=== PATIENT | female | born 1980 | race African-American/Black ===

== ENCOUNTER 2016-07-05 08:39 | Outpatient (CLI) | payer MEDICAID ==
[2016-07-05] MEDS ORDERED: PROMETHAZINE HCL INJ 25 MG/1 ML VIAL ONE (09:11)
[2016-07-05] MEDS ORDERED: RINGERS SOLUTION,LACTATED 1,000 ML IV PRN (09:30)
[2016-07-05] MEDS ORDERED: PROMETHAZINE HCL INJ 25 MG/1 ML VIAL IV ONE (09:30)
[2016-07-05 09:31] LABS: APPEARANCE,URINE SLIGHTLY-CLOUDY; BILIRUBIN,URINE NEGATIVE (NEGATIVE); GLUCOSE, URINE NEGATIVE (NEGATIVE); KETONES,URINE TRACE mg/dL (NEGATIVE); LEUKOCYTE ESTERASE,URINE MODERATE (NEGATIVE); NITRITE,URINE NEGATIVE (NEGATIVE); PROTEIN,URINE 30 mg/dL (NEGATIVE); URINE SPECIFIC GRAVITY 1.025
[2016-07-05 09:59] LABS: URINE BARBITURATES SCREEN NEGATIVE; URINE METHADONE SCREEN NEGATIVE; URINE PHENCYCLIDINE SCREEN NEGATIVE
--- NOTE | 2016-07-05 10:20 | Non Stress Test Report ---
Non Stress Test Datetime Report Generated by CPN: 07/05/2016 10:20 DEMOGRAPHIC EGA NST: 32.6 INDICATION Indication for Study: Other Indication for Study (NST) Other: Labor Check MONITORING Monitor Explained: Monitor Explained; Test Explained; Patient Verbalized Understanding Time on Monitor: 07/05/2016 09:04 Time off Monitor: 07/05/2016 09:56 NST Duration: 52 NST INTERVENTIONS NST Interventions: PO Hydration; Reposition Patient Physician Notified NST: Aysha Escalante CNM BABY A: [id number] BABY A Movement : Present Contraction Frequency : None FHR Baseline : 135 Accelerations : 15X15 Decelerations : None Variability : Moderate 6-25bpm NST Review: Meets Criteria for Reactive NST NST Review and Verified By : Jennifer Maher RNC NST Results: Reactive NST REPORT Report Trigger: Send Report
--- NOTE | 2016-07-10 16:44 | L&D Current Admission ---
Current Admit Datetime Report Generated by CPN: 07/10/2016 16:44 ADMISSION INFORMATION Chief Complaint: Contractions (07/05/2016 09:10:CHIQUIS Chacon
--- NOTE | 2016-07-10 16:44 | Antepartum Discharge Summary ---
Antepartum DC Datetime Report Generated by CPN: 07/10/2016 16:44 Diet: Regular (07/05/2016 10:18:Genoveva Handy RN) Activity: Normal Activity (07/05/2016 10:18:Genoveva Handy RN) Instructions Given To: Patient (07/05/2016 10:18:Genoveva Handy RN) Instructions Understood: Patient Verbalized Understanding (07/05/2016 10:18:Genoveva Handy RN) Referrals: None (07/05/2016 10:18:Genoveva Handy RN) Educational Materials- Other: Kick Counts, Dehydration (07/05/2016 10:18:Genoveva Handy RN) Discharged AMA: No (07/05/2016 10:18:Genoveva Handy RN) Discharge Date/Time: 07/05/2016 10:14 (07/05/2016 10:18:Genoveva Handy RN) Discharged To: Home (07/05/2016 10:18:Genoveva Handy RN) Discharge Provider Name: Aysha Escalante CNM (07/05/2016 10:18:Genoveva Handy RN) Accompanied By: Kelly Bajwa CNA (07/05/2016 10:18:Genoveva Handy RN) Discharge Method: Wheelchair (07/05/2016 10:18:Genoveva Handy RN) Condition: Stable (07/05/2016 10:18:Genoveva Handy RN) Follow Up With: [facility] (07/05/2016 10:18:Genoveva Handy RN) Follow Up On: As Scheduled (07/05/2016 10:18:Genoveva Handy RN) Follow Up Phone Number: [facility] - (07/05/2016 10:18:Genoveva Handy RN)
--- NOTE | 2016-07-10 16:45 | L&D Flow Sheet ---
LD Flowsheet Datetime Report Generated by CPN: 07/10/2016 16:45 Datetime: 07/05/2016 10:14 Communication Communication Comments: Pt off unit in stable condition in wheelchair accompanied by A. Bajwa CORRECTIONAL TREATMENT SPECIALIST. Pt states her dad is picking her up in ED (Genoveva Handy, RN) Datetime: 07/05/2016 10:07 Communication Communication Comments: D/C instructions given. IV discontined. Pt has no questions at this time (Genoveva Handy, RN) Datetime: 07/05/2016 09:56 Uterine Activity Monitor Mode: External (Genoveva Handy, RN) Frequency (min): None (Genoveva Handy, RN) Resting Tone (Palpate): Relaxed (Genoveva Handy, RN) Assessment A Monitor Mode: External US (Genoveva Handy, RN) FHR Baseline Rate : 145 (Genoveva Handy, RN) Variability: Moderate 6-25 bpm (Genoveva Handy, RN) Accelerations: 15X15 (Genoveva Handy, RN) Decelerations: None (Genoveva Handy, RN) Communication Communication Comments: D/C order received per Aysha Escalante CNM. PT trying to call someone to come get her (Genoveva Handy, RN) Datetime: 07/05/2016 09:54 Vaginal Exam Exam by: K. Escalante CNM (Genoveva Handy, RN) Vaginal Exam Comments: closed/thick/high (Genoveva Handy, RN) Communication Communication Comments: K. Escalante CNM at bedside (Genoveva Handy, RN) Datetime: 07/05/2016 09:36 Vital Signs NBP Sys/Nora/Mean (mmHg): 99 (QS system process) : 60 (QS system process) : 74 (QS system process) Pulse: 76 (QS system process) Datetime: 07/05/2016 09:30 Uterine Activity Monitor Mode: External (Genoveva Handy, RN) Frequency (min): None (Genoveva Handy, RN) Resting Tone (Palpate): Relaxed (Genoveva Handy, RN) Assessment A Monitor Mode: External US (Genoveva Ole, RN) FHR Baseline Rate : 135 (Genoveva Ole, RN) Variability: Moderate 6-25 bpm (Genoveva Ole, RN) Accelerations: 15X15 (Genoveva Ole, RN) Decelerations: None (Genoveva Ole, RN) Datetime: 07/05/2016 09:21 Medications Medication Comments: 25 mg Phenergan added to 1000ml bag of LR (Genoveva Handy, RN) Patient Care IV/Blood Work: IV Started; IV Bolus Started (Genoveva Handy, RN) Datetime: 07/05/2016 09:15 Communication Communication Comments: Report given to K. Escalante CNM. Orders to start IV and give 1L bolus of LR and add 25mg Phenergan to LR bag. (Genoveva Handy, RN) Datetime: 07/05/2016 09:10 Frequency (min): pt states they were 5-6 minutes apart and then spaced out once she sat on birthing ball at home (Genoveva Handy, HUI) Pain Pain Scale: 0 (Genoveva Handy RN) Pain Presence: None/Denies (Genoveva Handy RN) Pain Type: N/A (Genoveva Handy RN) Pain Assessment Comments: Pt denies pain at this time. States in the middle of the night it was 4/5 and unbearable. (Genoveva Handy RN) Vaginal Bleeding: None (Genoveva Handy RN) Maternal Assessment Level of Consciousness: Fully Conscious (Genoveva Handy RN) DTR's/Clonus: DTRs 2+; No Clonus (Genoveva Handy RN) Headache: Denies (Genoveva Handy RN) Breath Sounds, Left: Clear and Equal (Genoveva Handy RN) Breath Sounds, Right: Clear and Equal (Genoveva Handy RN) Nausea/Vomiting: Present (Annotations: Pt states she had N/V throughout the night) (Genoveva Handy RN) RUQ Epigastric Pain: Denies (Genoveva Handy RN) Teaching Instructional Method: Verbal; Patient Instructed; Verbalized Understanding (Genoveva Handy RN) Plan of Care: Plan of Care Discussed (Genoveva Handy RN) Unit Routine: [place] to Room; Call Chávez; Bed; Monitoring; Bathroom Privileges (Genoveva Handy RN) Datetime: 07/05/2016 09:06 Vital Signs NBP Sys/Nora/Mean (mmHg): 104 (QS system process) : 62 (QS system process) : 76 (QS system process) Pulse: 88 (QS system process) Datetime: 07/05/2016 09:04 Monitor Interventions for UA: [place] Adjusted (Genoveva Handy, RN) Patient Position/Activity: Right Lateral (Genoveva Handy, RN) Datetime: 07/05/2016 09:02 I/O Interventions: Clear Liquids Given (Genoveva Handy, RN) Datetime: 07/05/2016 09:01 Patient Position/Activity: Left Lateral (Genoveva Handy RN)
--- NOTE | 2016-07-10 16:45 | L&D General Admission ---
General Admit Datetime Report Generated by CPN: 07/10/2016 16:44 INFORMATION LMP: 11/16/2015 00:00 (05/08/2016 08:41:Genoveva Handy RN) : 3 (05/08/2016 08:41:Genoveva Handy RN) Para: 1 (07/05/2016 10:18:Genoveva Handy RN) [place] (05/08/2016 08:41:Genoveva Handy RN) Baby, Number in Womb: 1 (07/05/2016 10:18:Genoveva Handy RN) CARE Primary Acid Loader: [facility] (05/08/2016 08:41:Genoveva Handy RN) Acid Loader Other: [facility] (05/08/2016 08:41:Genoveva Handy RN) Prepregnancy Weight (lb): 145 (05/08/2016 08:41:Genoveva Handy RN) Prepregnancy Weight (kg): 65.9 (05/08/2016 08:41:QS system process) Height (in): 62 (07/05/2016 08:55:QS system process) Height (in): 63 (05/08/2016 10:19:QS system process) ALLERGIES Medication Allergies: No Known Allergies (07/05/2016) (07/05/2016 08:54:QS system process) Tubal Ligation: Yes (05/08/2016 08:41:Genoveva Handy RN) Tubal Authorization Signed: No (05/08/2016 08:41:Genoveva Handy RN) LABS RPR/VDRL: Nonreactive (05/08/2016 08:41:Genoveva Handy, RN) OB/PREVIOUS HISTORY LMP: 11/16/2015 00:00 (05/08/2016 08:41:Genoveva Handy RN) History of Gestational Diabetes: Yes (05/08/2016 08:41:Genoveva Handy RN) MEDICAL HISTORY Med Hx Diabetes: Yes (05/08/2016 08:41:Genoveva Handy RN) Diabetes Type: Gestational Diabetes (05/08/2016 08:41:Genoveva Handy RN) Med Hx Hospitalization/Surgery: Yes (05/08/2016 08:41:Genoveva Handy RN) Details of Med/Surg Hx: GDM - diet controlled, gastic bypass, IVF, laproscoptomy, ovarian drilling (05/08/2016 08:41:Genoveva Handy RN) GENETIC HISTORY Gen Hx Age >=35 at [facility]KY: Yes (05/08/2016 08:41:Genoveva Handy RN)
--- NOTE | 2016-07-10 16:45 | Non Stress Test Report ---
Non Stress Test Datetime Report Generated by CPN: 07/10/2016 16:45 DEMOGRAPHIC EGA NST: 32.6 INDICATION Indication for Study: Other Indication for Study (NST) Other: Labor Check MONITORING Monitor Explained: Monitor Explained; Test Explained; Patient Verbalized Understanding Time on Monitor: 07/05/2016 09:04 Time off Monitor: 07/05/2016 09:56 NST Duration: 52 NST INTERVENTIONS NST Interventions: PO Hydration; Reposition Patient Physician Notified NST: Aysha Escalante CNM BABY A: [id number] BABY A Movement : Present Contraction Frequency : None FHR Baseline : 135 Accelerations : 15X15 Decelerations : None Variability : Moderate 6-25bpm NST Review: Meets Criteria for Reactive NST NST Review and Verified By : Jennifer Maher RNC NST Results: Reactive NST REPORT Report Trigger: Send Report
--- NOTE | 2016-07-10 16:46 | L&D Discharge Summary ---
OB Discharge Summary Datetime Report Generated by CPN: 07/10/2016 16:45 DISCHARGE DIAGNOSIS Diagnosis/Symptoms: False Labor; Dehydration; Nausea/Vomiting Gestation: 32.6 Number of Babies in Womb: 1 Parity: 1 DIET/ACTIVITY/RESTRICTIONS Diet: Regular Activity: Normal Activity TEACHING/INSTRUCTIONS/REFERRALS Instructions Given To: Patient Instructions Understood: Patient Verbalized Understanding Referrals: None Educational Materials- Other: Kick Counts, Dehydration DISCHARGE INFORMATION Discharged AMA: No Discharge Date/Time: 07/05/2016 10:14 Discharged To: Home Discharge Provider Name: Aysha Escalante CNM Accompanied By: A. Bajwa ANIMAL HOSPITAL CLERK Discharge Method: Wheelchair Condition: Stable FOLLOW UP INFORMATION Follow Up With: [facility] Follow Up On: As Scheduled Follow Up Phone Number: [facility] -
== END 2016-07-05 10:14 | disposition home or self-care (01) ==
LOC: LC 08:39
PROVIDERS: ATTEND Obstetrics & Gynecology
PROC: 4A1HXCZ Monitoring of Products of Conception, Cardiac Rate, External Approach (ICD-10-PCS; principal; 2016-07-05)
DX: Z34.93 Encounter for supervision of normal pregnancy, unspecified, third trimester (principal); Z3A.32 32 weeks gestation of pregnancy
CPT/HCPCS: 81001; 80307; 59025; J2550

== ENCOUNTER 2016-08-02 03:53 | Outpatient (CLI) | payer MEDICAID ==
[2016-08-02 04:17] LABS: APPEARANCE,URINE CLOUDY; BILIRUBIN,URINE NEGATIVE (NEGATIVE); GLUCOSE, URINE NEGATIVE (NEGATIVE); KETONES,URINE 20 mg/dL (NEGATIVE); LEUKOCYTE ESTERASE,URINE LARGE (NEGATIVE); NITRITE,URINE NEGATIVE (NEGATIVE); PROTEIN,URINE 30 mg/dL (NEGATIVE); URINE SPECIFIC GRAVITY 1.016
[2016-08-02 04:34] LABS: URINE BARBITURATES SCREEN NEGATIVE; URINE METHADONE SCREEN NEGATIVE; URINE OPIATES LOW NEGATIVE; URINE PHENCYCLIDINE SCREEN NEGATIVE
--- NOTE | 2016-08-06 21:19 | Non Stress Test Report ---
Non Stress Test Datetime Report Generated by CPN: 08/06/2016 21:19 DEMOGRAPHIC Test Number: 2 EGA NST: 36.6 INDICATION Indication for Study: Other Indication for Study (NST) Other: labor check MONITORING Monitor Explained: Monitor Explained; Test Explained; Patient Verbalized Understanding Time on Monitor: 08/02/2016 04:12 Time off Monitor: 08/02/2016 04:41 NST Duration: 29 NST INTERVENTIONS NST Interventions: PO Hydration; Other NST Interventions Other: popcicle Physician Notified NST: Dr Neilsen BABY A: [id number] BABY A Movement : Present Contraction Frequency : none FHR Baseline : 130 Accelerations : 15X15 Decelerations : None Variability : Moderate 6-25bpm NST Review: Meets Criteria for Reactive NST NST Review and Verified By : Carlos Whitmore RN NSAttila Results: Reactive NST REPORT Report Trigger: Send Report
== END 2016-08-02 05:02 | disposition home or self-care (01) ==
LOC: LC 03:53
PROVIDERS: ATTEND Specialist
PROC: 4A1HXCZ Monitoring of Products of Conception, Cardiac Rate, External Approach (ICD-10-PCS; principal; 2016-08-02)
DX: O09.523 Supervision of elderly multigravida, third trimester (principal); Z3A.36 36 weeks gestation of pregnancy
CPT/HCPCS: 59025; 80307; 81005

== ENCOUNTER 2016-08-02 05:17 | Emergency (ER) | payer MEDICAID ==
[2016-08-02 05:24] VITALS: BP 116/68
== END 2016-08-02 06:25 | disposition left against medical advice (07) ==
LOC: ER 05:17
DX: Z53.21 Procedure and treatment not carried out due to patient leaving prior to being seen by health care provider (principal)

== ENCOUNTER → 2016-08-02 | Outpatient (CLI) | payer MEDICAID | LOC: OD 09:29 | PROVIDERS: ATTEND Obstetrics & Gynecology | DX: J06.9 Acute upper respiratory infection, unspecified (principal); R05 Cough | CPT/HCPCS: 87804 ==

== ENCOUNTER 2016-08-06 21:21 | Outpatient (CLI) | payer MEDICAID ==
--- NOTE | 2016-08-06 22:00 | L&D Flow Sheet ---
LD Flowsheet Datetime Report Generated by CPN: 08/06/2016 22:00 Datetime: 08/06/2016 21:56 Stage of : OB Triage (Crystal [place], RN) Dilatation (cm): 1 (Crystal [place], RN) Effacement: 0-30_ effaced (Crystal [place], RN) Station: minus 3 (Crystal [place], RN) Datetime: 08/06/2016 21:43 NBP Sys/Nora/Mean (mmHg): 126 (QS system process) : 79 (QS system process) : 97 (QS system process) Pulse: 75 (QS system process) Monitor Mode: Palpation (Lucrecia [place], RN) Frequency (min): 1 (Lucrecia Fallergrass, RN) Quality: Mild (Crystal Iram, RN) Duration (sec): 60 (Crystal [place], RN) Duration Criteria: Less than Two 120 Second Contractions (Lucrecia Fallergrass, RN) Resting Tone (Palpate): Relaxed (Lucrecia Iram, RN) Monitor Mode: External US (Lucrecia [place], RN) FHR Baseline Rate : 125 (Lucrecia Iram, RN) Variability: Moderate 6-25 bpm (Crystal Iram, RN) Accelerations: 15X15 (Crystal Iram, RN) Decelerations: None (Lucrecia [place], RN) Patient Position/Activity: Left Tilt; High Fowlers (Lucrecia [place], RN) I/O Interventions: Clear Liquids Given (Lucrecia Walden, RN) Datetime: 08/06/2016 21:32 Monitor Mode: External US (Lucrecia Walden, RN) Pain Scale: 4 (Lucrecia Walden, RN) Pain Presence: Intermittent (Lucrecia Walden, RN) Pain Type: Pressure; Ache (Lucrecia Walden, RN) Pain Location: Abdomen; Back; Perineum (Lucrecia Walden, RN) Pain Goal: 1 (Lucrecia Walden RN) Pain Relief Measures: Comfort Measures (Lucrecia Walden RN) Pain Coping: Talking Through Contractions (Lucrecia Walden RN) Vaginal Bleeding: None (Lucrecia Walden RN) Level of Consciousness: Fully Conscious (Lucrecia Walden RN) DTR's/Clonus: DTRs 1+; No Clonus (Lucrecia Walden RN) Headache: Temporal (Lucrecia Walden RN) Breath Sounds, Left: Clear and Equal (Lucrecia Walden RN) Breath Sounds, Right: Clear and Equal (Lucrecia Walden RN) Nausea/Vomiting: Denies (Lucrecia Walden RN) RUQ Epigastric Pain: Denies (Lucrecia Walden RN)
[2016-08-06 22:30] LABS: APPEARANCE,URINE CLEAR; BILIRUBIN,URINE MODERATE (NEGATIVE); GLUCOSE, URINE NEGATIVE (NEGATIVE); KETONES,URINE 100 mg/dL (NEGATIVE)
[2016-08-06 22:31] LABS: LEUKOCYTE ESTERASE,URINE SMALL (NEGATIVE); NITRITE,URINE NEGATIVE (NEGATIVE); PROTEIN,URINE 100 mg/dL (NEGATIVE); URINE SPECIFIC GRAVITY 1.033
[2016-08-06] MEDS ORDERED: HYDROXYZINE PAMOATE 50 MG CAPSULE PO ONE (22:34)
[2016-08-06] MEDS ORDERED: HYDROXYZINE PAMOATE 50 MG CAPSULE ONE (22:37)
[2016-08-06 22:38] LABS: URINE BARBITURATES SCREEN NEGATIVE; URINE METHADONE SCREEN NEGATIVE; URINE OPIATES LOW NEGATIVE; URINE PHENCYCLIDINE SCREEN NEGATIVE
--- NOTE | 2016-08-08 10:36 | Non Stress Test Report ---
Non Stress Test Datetime Report Generated by CPN: 08/08/2016 10:36 DEMOGRAPHIC Test Number: 1 EGA NST: 37.3 INDICATION Indication for Study: Ordered by Provider VITAL SIGNS Temperature - NST: 98.0 Pulse - NST: 75 RESP - NST: 16 NBPSYS NST: 126 NBPDIA NST: 79 MONITORING Monitor Explained: Monitor Explained; Test Explained; Patient Verbalized Understanding Time on Monitor: 08/06/2016 21:35 Time off Monitor: 08/06/2016 22:30 NST Duration: 55 NST INTERVENTIONS NST Interventions: PO Hydration Physician Notified NST: Arpit BABY A Movement : Present Contraction Frequency : Irritability FHR Baseline : 125 Accelerations : 15X15 Decelerations : None Variability : Moderate 6-25bpm NST Review: Meets Criteria for Reactive NST NST Review and Verified By : Carlos Whitmore RN NST Results: Reactive NST REPORT Report Trigger: Send Report
== END 2016-08-06 23:02 | disposition home or self-care (01) ==
LOC: LC 21:21
PROVIDERS: ATTEND Obstetrics & Gynecology
PROC: 4A1HXCZ Monitoring of Products of Conception, Cardiac Rate, External Approach (ICD-10-PCS; principal; 2016-08-06)
DX: O47.1 False labor at or after 37 completed weeks of gestation (principal); O09.523 Supervision of elderly multigravida, third trimester; Z3A.37 37 weeks gestation of pregnancy
CPT/HCPCS: 59025; 81005; 80307; J3490

== ENCOUNTER 2016-08-08 10:39 | Outpatient (CLI) | payer MEDICAID ==
[2016-08-08 11:20] LABS: APPEARANCE,URINE SLIGHTLY-CLOUDY; BILIRUBIN,URINE NEGATIVE (NEGATIVE); GLUCOSE, URINE NEGATIVE (NEGATIVE); KETONES,URINE NEGATIVE (NEGATIVE); LEUKOCYTE ESTERASE,URINE MODERATE (NEGATIVE); NITRITE,URINE NEGATIVE (NEGATIVE); PROTEIN,URINE NEGATIVE (NEGATIVE); URINE SPECIFIC GRAVITY 1.021
[2016-08-08 11:27] LABS: AMNISURE (ROM) NEGATIVE (NEGATIVE)
--- NOTE | 2016-08-08 11:31 | Non Stress Test Report ---
Non Stress Test Datetime Report Generated by CPN: 08/08/2016 11:31 DEMOGRAPHIC EGA NST: 37.5 INDICATION Indication for Study: Ordered by Provider MONITORING Monitor Explained: Monitor Explained; Test Explained; Patient Verbalized Understanding Time on Monitor: 08/08/2016 10:59 Time off Monitor: 08/08/2016 11:29 NST Duration: 30 NST INTERVENTIONS NST Interventions: PO Hydration; Reposition Patient Physician Notified NST: P. Darby, CNM BABY A Movement : Present Contraction Frequency : 0 FHR Baseline : 130 Accelerations : 15X15 Variability : Moderate 6-25bpm NST Review: Meets Criteria for Reactive NST NST Review and Verified By : Marissa Peres RNC NST Results: Reactive NST REPORT Report Trigger: Send Report
[2016-08-08 11:52] LABS: URINE BARBITURATES SCREEN NEGATIVE; URINE METHADONE SCREEN NEGATIVE; URINE OPIATES LOW NEGATIVE; URINE PHENCYCLIDINE SCREEN NEGATIVE
== END 2016-08-08 10:55 | disposition home or self-care (01) ==
LOC: LC 10:39
PROVIDERS: ATTEND Obstetrics & Gynecology
DX: Z34.93 Encounter for supervision of normal pregnancy, unspecified, third trimester (principal); Z3A.37 37 weeks gestation of pregnancy
CPT/HCPCS: 59025; 80307; 81005; 84112

== ENCOUNTER 2016-08-12 20:46 | Outpatient (CLI) | payer MEDICAID ==
[2016-08-12 21:27] LABS: APPEARANCE,URINE CLOUDY; BILIRUBIN,URINE NEGATIVE (NEGATIVE); GLUCOSE, URINE NEGATIVE (NEGATIVE); KETONES,URINE NEGATIVE (NEGATIVE); LEUKOCYTE ESTERASE,URINE MODERATE (NEGATIVE); NITRITE,URINE NEGATIVE (NEGATIVE); PROTEIN,URINE NEGATIVE (NEGATIVE)
[2016-08-12 21:31] LABS: AMNISURE (ROM) NEGATIVE (NEGATIVE)
[2016-08-12 21:42] LABS: URINE BARBITURATES SCREEN NEGATIVE; URINE METHADONE SCREEN NEGATIVE; URINE OPIATES LOW NEGATIVE; URINE PHENCYCLIDINE SCREEN NEGATIVE
--- NOTE | 2016-08-12 22:01 | L&D Flow Sheet ---
LD Flowsheet Datetime Report Generated by CPN: 08/12/2016 22:00 Datetime: 08/12/2016 21:48 NBP Sys/Nora/Mean (mmHg): 108 (QS system process) : 61 (QS system process) : 78 (QS system process) Pulse: 71 (QS system process) LaborFlag: OB Triage (QS system process) Datetime: 08/12/2016 21:45 Monitor Mode: External; Palpation (Audelia Hill RN) Frequency (min): irregular (Audelia Chalman, RN) Quality: Mild (Audelia Hill RN) Duration (sec): 50-70 (Audelia Hill RN) Pattern: Normal: <= 5 Contractions in 10 Minutes (Audelia Hill RN) Resting Tone (Palpate): Relaxed (Audelia Hill RN) Monitor Mode: External US (Audelia Hill RN) FHR Baseline Rate : 130 (Audelia Hill RN) FHR Baseline Changes: No Baseline Change (Audelia Hill RN) Variability: Moderate 6-25 bpm (Audelia Hill RN) Accelerations: 10X10 (Audelia Hill RN) Decelerations: None (Audelia Hill RN) Patient Care Comments: pt made aware of Dr. Larios's plan of care. pt given popsicle (Audelia Hill RN) Datetime: 08/12/2016 21:37 Additional Nursing Comments: report called to Dr. Larios. Provider aware of pt history and current complaints. Provider given RN assesment of SVE, u/a results, negative amnisure, FHR and toco tracing. Per provider pt ok to be d/c home once NST is reactive with no repeat SVE. (Audelia Hill RN) Datetime: 08/12/2016 21:33 NBP Sys/Nora/Mean (mmHg): 103 (QS system process) : 59 (QS system process) : 76 (QS system process) Pulse: 71 (QS system process) LaborFlag: OB Triage (QS system process) Datetime: 08/12/2016 21:30 Monitor Mode: External; Palpation (Audelia Hill, RN) Frequency (min): irregular (Audelia Hill, RN) Quality: Mild (Audelia Chalman, RN) Duration (sec): 40-60 (Audelia Sergio, RN) Pattern: Normal: <= 5 Contractions in 10 Minutes (Audelia Chalman, RN) Resting Tone (Palpate): Relaxed (Audelia Hill, RN) Monitor Mode: External US (Audelia Hill, RN) FHR Baseline Rate : 130 (Audelia Sergio, RN) FHR Baseline Changes: No Baseline Change (Audelia Chalman, RN) Variability: Moderate 6-25 bpm (Audelia Kyrieman, RN) Accelerations: 15X15 (Audelia Kyrieman, RN) Decelerations: None (Audelia Kyrieman, RN) Datetime: 08/12/2016 21:24 Frequency (min): 2-3 (Audelia Hill RN) Pain Scale: 4 (Audelia Hill RN) Pain Presence: Constant (Audelia Hill RN) Pain Type: Cramping; Contraction (Audelia Hill RN) Pain Location: Abdomen; Back; Right Chest; Left Chest (Audelia Hill RN) Pain Relief Measures: Comfort Measures (Audelia Hill RN) Pain Coping: Talking Through Contractions (Audelia Hill RN) Vaginal Bleeding: None (Audelia Hill RN) Level of Consciousness: Fully Conscious (Audelia Hill RN) DTR's/Clonus: DTRs 1+ (Audelia Hill RN) Headache: Denies (Audelia Hill RN) Breath Sounds, Left: Clear and Equal (Audelia Hill RN) Breath Sounds, Right: Clear and Equal (Audelia Hill RN) Nausea/Vomiting: Denies (Audelia Hill RN) LaborFlag: OB Triage (QS system process) Datetime: 08/12/2016 21:18 NBP Sys/Nora/Mean (mmHg): 92 (QS system process) : 60 (QS system process) : 68 (QS system process) Pulse: 84 (QS system process) Temperature (F): 98.0 (Audelia Hill RN) Temperature (C): 36.7 (QS system process) Temperature Route: Oral (Audelia Hill RN) LaborFlag: OB Triage (QS system process) Datetime: 08/12/2016 21:16 Dilatation (cm): 2.0 (Audelia Hill RN) Effacement (%): 60 (Audelia Hill RN) Station: -2 (Audelia Hill RN) Exam by: Kelly Hill RN (Audelia Hill RN) Vaginal Bleeding: None (Audelia Hill RN) Cervix, Consistency: Soft (Audelia Hill RN) Cervix, Position: Posterior (Audelia Hill RN)
== END 2016-08-12 22:06 | disposition home or self-care (01) ==
LOC: LC 20:46
PROVIDERS: ATTEND Specialist
PROC: 4A1HXCZ Monitoring of Products of Conception, Cardiac Rate, External Approach (ICD-10-PCS; principal; 2016-08-12)
DX: O47.1 False labor at or after 37 completed weeks of gestation (principal); O09.523 Supervision of elderly multigravida, third trimester; Z3A.38 38 weeks gestation of pregnancy
CPT/HCPCS: 59025; 80307; 81005; 84112

== ENCOUNTER 2016-08-15 08:53 | Inpatient (IN) | payer MEDICAID ==
--- NOTE | 2016-08-15 08:55 | Non Stress Test Report ---
Non Stress Test Datetime Report Generated by CPN: 08/15/2016 08:54 DEMOGRAPHIC EGA NST: 38.2 INDICATION Indication for Study: Ordered by Provider URINE RESULTS Urine Protein, NST: Negative Urine Ketones - NST: Negative Urine Glucose - NST: Negative Urine Blood - NST: Negative MONITORING Monitor Explained: Monitor Explained; Test Explained; Patient Verbalized Understanding Time on Monitor: 08/12/2016 21:13 Time off Monitor: 08/12/2016 21:58 NST Duration: 45 NST INTERVENTIONS NST Interventions: PO Hydration Physician Notified NST: Dr. Neilsen BABY A Movement : Present Movement : Present Contraction Frequency : irregular FHR Baseline : 130 Accelerations : 15X15 Decelerations : None Variability : Moderate 6-25bpm NST Review: Meets Criteria for Reactive NST NST Review and Verified By : HUI Juarez NSAttila Results: Reactive NST REPORT Report Trigger: Send Report
[2016-08-15 09:34] LABS: AMNISURE (ROM) POSITIVE (NEGATIVE)
[2016-08-15 09:36] LABS: APPEARANCE,URINE SLIGHTLY-CLOUDY; BILIRUBIN,URINE NEGATIVE (NEGATIVE); GLUCOSE, URINE 50 mg/dL (NEGATIVE); KETONES,URINE NEGATIVE (NEGATIVE); LEUKOCYTE ESTERASE,URINE SMALL (NEGATIVE); NITRITE,URINE NEGATIVE (NEGATIVE); PROTEIN,URINE 30 mg/dL (NEGATIVE); URINE SPECIFIC GRAVITY 1.026
[2016-08-15] MEDS ORDERED: RINGERS SOLUTION,LACTATED 1,000 ML IV PRN (09:45)
[2016-08-15] MEDS ORDERED: OXYTOCIN/NORMAL SALINE 1,000 ML IV PRN ×2 (09:45→15:17)
[2016-08-15] MEDS ORDERED: RINGERS SOLUTION,LACTATED 1,000 ML IV ONE (09:45)
--- NOTE | 2016-08-15 09:45 | Non Stress Test Report ---
Non Stress Test Datetime Report Generated by CPN: 08/15/2016 09:44 DEMOGRAPHIC EGA NST: 38.5 INDICATION Indication for Study: Ordered by Provider; Other Indication for Study (NST) Other: protocol MONITORING Monitor Explained: Monitor Explained; Test Explained; Patient Verbalized Understanding Time on Monitor: 08/15/2016 09:13 Time off Monitor: 08/15/2016 09:43 NST Duration: 30 NST INTERVENTIONS NST Interventions: PO Hydration; Reposition Patient Physician Notified NST: H Armand CNM BABY A Movement : Present Contraction Frequency : none FHR Baseline : 135 Accelerations : 15X15 Decelerations : None Variability : Moderate 6-25bpm NST Review: Meets Criteria for Reactive NST NST Review and Verified By : S Adriana RN NST Results: Reactive NST REPORT Report Trigger: Send Report
[2016-08-15 09:55] LABS: URINE BARBITURATES SCREEN NEGATIVE; URINE METHADONE SCREEN NEGATIVE; URINE OPIATES LOW NEGATIVE; URINE PHENCYCLIDINE SCREEN NEGATIVE
--- NOTE | 2016-08-15 10:00 | L&D Flow Sheet ---
LD Flowsheet Datetime Report Generated by CPN: 08/15/2016 10:00 Datetime: 08/15/2016 09:26 Frequency (min): 5-6 (Genoveva Handy RN) Pain Scale: 4 (Genoveva Handy RN) Pain Presence: Intermittent (Genoveva Handy RN) Pain Type: Contraction (Genoveva Handy RN) Pain Location: Abdomen (Genoveva Handy RN) Vaginal Bleeding: Scant (Genoveva Handy RN) Level of Consciousness: Fully Conscious (Genoveva Handy RN) DTR's/Clonus: DTRs 2+; No Clonus (Genoveva Handy RN) Headache: Denies (Genoveva Handy RN) Breath Sounds, Left: Clear and Equal (Genoveva Handy RN) Breath Sounds, Right: Clear and Equal (Genoveva Handy RN) Nausea/Vomiting: Denies (Genoveva Handy RN) RUQ Epigastric Pain: Denies (Genoveva Handy RN) Instructional Method: Verbal; Patient Instructed; Family/Support Person Instructed; Verbalized Understanding (Genoveva Handy RN) Plan of Care: Plan of Care Discussed (Genoveva Handy RN) Unit Routine: [place] to Room; Call Chávez; Bed; Handwashing; Bathroom Privileges (Genoveva Handy RN) LaborFlag: OB Triage (QS system process) Datetime: 08/15/2016 09:19 Dilatation (cm): 3.0 (Genoveva Handy RN) Effacement (%): 60 (Genoveva Handy RN) Station: -2 (Genoveva Handy RN) Exam by: Kelly Handy RN (Genoveva Handy RN) Datetime: 08/15/2016 09:16 NBP Sys/Nora/Mean (mmHg): 107 (QS system process) : 78 (QS system process) : 86 (QS system process) Pulse: 90 (QS system process) LaborFlag: OB Triage (QS system process) Datetime: 08/15/2016 09:13 Patient Position/Activity: Right Lateral (Genoveva Handy RN) I/O Interventions: Popsicle; Clear Liquids Given (Genoveva Handy RN)
[2016-08-15 10:18] LABS: ABSOLUTE BASOPHILS # (AUTO) 0.1 10^3/uL (0.0-0.2); ABSOLUTE LYMPHOCYTES (AUTO) 0.8 10^3/uL (0.5-4.7); ABSOLUTE MONOCYTES (AUTO) 0.5 10^3/uL (0.1-1.4); ABSOLUTE NEUT (AUTO) 5.2 10^3/uL (1.7-8.2); BASOPHILS % (AUTO) 0.8 % (0-2); EOSINOPHILS % (AUTO) 0.1 % (0-6); HEMATOCRIT 31.3 % (36.0-47.0); HEMOGLOBIN 10.3 g/dL (12.0-15.5); HGB HCT DIFFERENCE -0.4; LYMPHOCYTES % (AUTO) 12.1 % (13-45); MEAN CORPUSCULAR HGB CONC 32.9 g/dL (32.0-36.0); MEAN CORPUSCULAR VOLUME 82 fl (80-97); MONOCYTES % (AUTO) 7.9 % (3-13); RED BLOOD COUNT 3.82 10^6/uL (3.72-5.28); RED CELL DISTRIBUTION WIDTH 13.7 % (11.5-14.0); SEGMENTED NEUTROPHILS % (AUTO) 79.1 % (42-78); WHITE BLOOD COUNT 6.6 10^3/uL (4.0-10.5)
[2016-08-15] MEDS ORDERED: OXYTOCIN/NORMAL SALINE 20 UNIT/1,000 ML RTUINJ ONE (10:26)
--- NOTE | 2016-08-15 12:01 | L&D Flow Sheet ---
LD Flowsheet Datetime Report Generated by CPN: 08/15/2016 12:00 Datetime: 08/15/2016 11:48 I/O Interventions: Up to BR (Genoveva Handy, RN) Datetime: 08/15/2016 11:45 Pitocin (milliunit): Pitocin Increased to (milliunits) @ 10 (Genoveva Handy, RN) Datetime: 08/15/2016 11:31 NBP Sys/Nora/Mean (mmHg): 110 (QS system process) : 65 (QS system process) : 83 (QS system process) Pulse: 70 (QS system process) LaborFlag: Labor (QS system process) Datetime: 08/15/2016 11:30 Monitor Mode: External (Genoveva Handy RN) Frequency (min): irreg (Genoveva Handy RN) Quality: Mild (Genoveva Handy RN) Duration (sec): 30-50 (Genoveva Handy RN) Resting Tone (Palpate): Relaxed (Genoveva Handy RN) Monitor Mode: External US (Genoveva Handy RN) FHR Baseline Rate : 135 (Genoveva Handy RN) Variability: Moderate 6-25 bpm (Genoveva Handy RN) Accelerations: 15X15 (Genoveva Handy RN) Decelerations: None (Genoveva Handy RN) Pitocin (milliunit): Pitocin Increased to (milliunits) @ 8 (Genoveva Handy RN) Datetime: 08/15/2016 11:15 Monitor Mode: External (Genoveva Handy, RN) Frequency (min): none (Genoveva Handy, RN) Resting Tone (Palpate): Relaxed (Genoveva Handy, RN) Monitor Mode: External US (Genoveva Handy, RN) FHR Baseline Rate : 135 (Genoveva Handy, RN) Variability: Moderate 6-25 bpm (Genovevasean Handy, RN) Accelerations: 15X15 (Genovevasean Handy, RN) Decelerations: None (Genovevasean Handy, RN) Pitocin (milliunit): Pitocin Increased to (milliunits) @ 6 (Genoveva Handy, RN) Datetime: 08/15/2016 11:01 NBP Sys/Nora/Mean (mmHg): 109 (QS system process) : 79 (QS system process) : 90 (QS system process) Pulse: 70 (QS system process) LaborFlag: Labor (QS system process) Datetime: 08/15/2016 11:00 Monitor Mode: External (Genoveva Ole, RN) Frequency (min): x2 (Genovevasean Handy, RN) Quality: Mild (Genoveva Handy, RN) Duration (sec): 70-90 (Genovevasean Handy, RN) Resting Tone (Palpate): Relaxed (Genovevasean Handy, RN) Monitor Mode: External US (Genovevasean Handy, RN) FHR Baseline Rate : 125 (Genoveva Ole, RN) Variability: Minimal - Undetectable to <=5 bpm (Genoveva Handy, RN) Accelerations: None (Genoveva Handy, RN) Decelerations: None (Genoveva Ole, RN) Pitocin (milliunit): Pitocin Increased to (milliunits) @ 4 (Genoveva Handy, RN) Datetime: 08/15/2016 10:46 Monitor Interventions for FHR: Ultrasound Adjusted (Genoveva Handy, RN) Patient Position/Activity: Left Lateral (Genoveva Handy, RN) Datetime: 08/15/2016 10:45 Monitor Mode: External (Genoveva Handy, RN) Frequency (min): x2 (Genoveva Handy, RN) Quality: Mild (Genoveva Handy, RN) Duration (sec): 50-60 (Genoveva Handy, RN) Resting Tone (Palpate): Relaxed (Genoveva Handy, RN) Monitor Mode: External US (Genoveva Handy, RN) FHR Baseline Rate : 125 (Genoveva Handy, RN) Variability: Moderate 6-25 bpm (Genovevasean Handy, RN) Accelerations: 15X15 (Genovevasean Handy, RN) Decelerations: None (Genoveva Handy, RN) Pitocin (milliunit): Pitocin Remains (milliunits) @ 2 (Genovevasean Handy, RN) Datetime: 08/15/2016 10:35 Pitocin (milliunit): Pitocin Started (milliunits) @ 2; Pitocin 20 Units in 1000ml NS (Genoveva Handy, RN) Datetime: 08/15/2016 10:30 Monitor Mode: External (Genoveva Handy, RN) Frequency (min): none (Genoveva Handy, RN) Resting Tone (Palpate): Relaxed (Genoveva Handy, RN) Monitor Mode: External US (Genoveva Handy, RN) FHR Baseline Rate : 135 (Genoveva Handy, RN) Variability: Moderate 6-25 bpm (Genoveva Handy, RN) Accelerations: 15X15 (Genovevasean Handy, RN) Decelerations: None (Genoveva Handy, RN) Datetime: 08/15/2016 10:21 IV/Blood Work: IV Started; IV Bolus Started (Genoveva Ole, RN) Datetime: 08/15/2016 10:01 NBP Sys/Nora/Mean (mmHg): 114 (QS system process) : 71 (QS system process) : 87 (QS system process) Pulse: 74 (QS system process) LaborFlag: Labor (QS system process) Datetime: 08/15/2016 10:00 Monitor Mode: External (Genoveva Handy RN) Frequency (min): none (Genoveva Handy RN) Resting Tone (Palpate): Relaxed (Genoveva Handy RN) Monitor Mode: External US (Genoveva Handy RN) FHR Baseline Rate : 135 (Genoveva Handy RN) Variability: Moderate 6-25 bpm (Genoveva Handy RN) Accelerations: 15X15 (Genoveva Handy RN) Decelerations: None (Genoveva Handy RN)
[2016-08-15] MEDS ORDERED: PROMETHAZINE HCL INJ 25 MG/1 ML VIAL ONE (12:33)
[2016-08-15] MEDS ORDERED: NALBUPHINE HCL INJ 10 MG/1 ML AMPULE INJ ONE (12:34)
[2016-08-15] MEDS ORDERED: NALBUPHINE HCL INJ 10 MG/1 ML AMPULE ONE (12:34)
[2016-08-15] MEDS ORDERED: PROMETHAZINE HCL INJ 25 MG/1 ML VIAL IV ONE (12:34)
--- NOTE | 2016-08-15 14:01 | L&D Flow Sheet ---
LD Flowsheet Datetime Report Generated by CPN: 08/15/2016 14:00 Datetime: 08/15/2016 13:54 NBP Sys/Nora/Mean (mmHg): 107 (QS system process) : 63 (QS system process) : 79 (QS system process) Pulse: 88 (QS system process) Datetime: 08/15/2016 13:39 Stage of : Recovery (Genoveva Ole, RN) NBP Sys/Nora/Mean (mmHg): 107 (QS system process) : 62 (QS system process) : 81 (QS system process) Pulse: 85 (QS system process) Temperature (F): 97.7 (Genoveva Handy RN) Temperature (C): 36.5 (QS system process) Pain Scale: 0 (Genoveva Handy RN) Pain Presence: None/Denies (Genoveva Handy RN) Pain Type: N/A (Genoveva Handy RN) Datetime: 08/15/2016 13:34 Stage of : Recovery (Genoveva Handy RN) Datetime: 08/15/2016 13:31 NBP Sys/Nora/Mean (mmHg): 127 (QS system process) : 74 (QS system process) : 96 (QS system process) Pulse: 92 (QS system process) LaborFlag: Labor (QS system process) Datetime: 08/15/2016 13:25 Pushing: Coached on Pushing; Urge to Push (Genoveva Handy RN) Pushing Position: Pushing with Contractions (Genoveva Handy RN) Pushing Progress: Descent with Pushing (Genoveva Handy RN) Preparation for Delivery: Setup for Delivery (Genoveva Handy RN) Communication Comments: H. Armand CNM at bedside (Genoveva Handy RN) Datetime: 08/15/2016 13:22 Dilatation (cm): 10.0 (Genoveva Handy RN) Effacement (%): 100 (Genoveva Handy RN) Station: 2 (Genovvea Handy RN) Exam by: Sean Handy RN (Genoveva Handy RN) Datetime: 08/15/2016 13:15 Monitor Mode: External (Genoveva Handy RN) Frequency (min): 2-4 (Genoveva Handy RN) Quality: Mild/Moderate (Genoveva Handy RN) Duration (sec): 30-50 (Genoveva Handy RN) Resting Tone (Palpate): Relaxed (Genoveva Handy RN) Monitor Mode: External US (Genoveva Handy RN) FHR Baseline Rate : 125 (Genoveva Handy RN) Variability: Minimal - Undetectable to <=5 bpm (Genoveva Handy RN) Accelerations: None (Genoveva Handy RN) Decelerations: None (Genoveva Handy RN) Pitocin (milliunit): Pitocin Increased to (milliunits) @ 14 (Genoveva Handy RN) Datetime: 08/15/2016 13:12 I/O Interventions: Popsicle (Genoveva Handy RN) Datetime: 08/15/2016 13:02 NBP Sys/Nora/Mean (mmHg): 154 (QS system process) : 67 (QS system process) : 97 (QS system process) Pulse: 106 (QS system process) LaborFlag: Labor (QS system process) Datetime: 08/15/2016 13:00 Monitor Mode: External (Genoveva Handy, RN) Frequency (min): 2-3 (Genoveva Handy, RN) Quality: Mild/Moderate (Genoveva Handy, RN) Duration (sec): 30-60 (Genoveva Handy, RN) Resting Tone (Palpate): Relaxed (Genoveva Handy, RN) Monitor Mode: External US (Genoveva Handy, RN) FHR Baseline Rate : 125 (Genoveva Handy, RN) Variability: Moderate 6-25 bpm (Genoveva Handy, RN) Accelerations: 15X15 (Genoveva Handy, RN) Decelerations: None (Genoveva Handy, RN) Pitocin (milliunit): Pitocin Remains (milliunits) @ 12 (Genoveva Handy, RN) Datetime: 08/15/2016 12:51 Respirations: 16 (Genoveva Handy, RN) Temperature (F): 97.5 (Genoveva Handy, RN) Temperature (C): 36.4 (QS system process) LaborFlag: Labor (QS system process) Datetime: 08/15/2016 12:46 Analgesics/Sedatives: Nubain (mg) @ 10; Phenergan (mg) @ 12.5 (Genoveva Handy, RN) Datetime: 08/15/2016 12:45 Monitor Mode: External (Genoveva Handy RN) Frequency (min): 1.5-3 (Genoveva Handy RN) Quality: Mild/Moderate (Genoveva Handy RN) Duration (sec): 40-70 (Genoveva Handy RN) Resting Tone (Palpate): Relaxed (Genoveva Handy RN) Monitor Mode: External US (Genoveva Handy RN) FHR Baseline Rate : 125 (Genoveva Handy RN) Variability: Moderate 6-25 bpm (Genoveva Handy RN) Accelerations: 10X10 (Genoveva Handy RN) Decelerations: None (Genoveva Handy RN) Pitocin (milliunit): Pitocin Increased to (milliunits) @ 12 (Genoveva Handy RN) Datetime: 08/15/2016 12:37 Dilatation (cm): 4.0 (Genoveva Handy RN) Effacement (%): 90 (Genoveva Handy RN) Station: -1 (Genoveva Handy RN) Exam by: Johnson Stonerake CNJensen (Genoveva Handy RN) Communication Comments: Orders received to give 10mg Nubain and 12.5mg Phenergan per H. Armand KELLER (Genoveva Handy RN) Datetime: 08/15/2016 12:36 Pain Presence: Intermittent (Genoveva Handy RN) Pain Type: Contraction (Genoveva Handy RN) Pain Location: Abdomen (Genoveva Handy RN) Pain Coping: Breathing Through Contractions; Requesting Pain Medication or Epidural; Crying (Genoveva Handy RN) LaborFlag: Labor (QS system process) Datetime: 08/15/2016 12:31 Monitor Interventions for UA: [place] Adjusted (Genoveva Handy, RN) Datetime: 08/15/2016 12:30 Monitor Mode: External (Genoveva Handy, RN) Frequency (min): 2-3 (Genoveva Handy, RN) Quality: Mild/Moderate (Genoveva Handy, RN) Duration (sec): 40-60 (Genoveva Handy, RN) Duration Criteria: Less than Two 120 Second Contractions (Genoveva Handy, RN) Pattern: Normal: <= 5 Contractions in 10 Minutes (Genoveva Handy, RN) Resting Tone (Palpate): Relaxed (Genoveva Handy, RN) Monitor Mode: External US (Genoveva Handy, RN) FHR Baseline Rate : 125 (Genoveva Handy, RN) Variability: Moderate 6-25 bpm (Genoveva Handy, RN) Accelerations: None (Genoveva Handy, RN) Decelerations: None (Genoveva Handy, RN) Pitocin (milliunit): Pitocin Remains (milliunits) @ 10 (Genoveva Handy, RN) Datetime: 08/15/2016 12:28 Patient Position/Activity: Right Lateral (Genoveva Ole, RN) Datetime: 08/15/2016 12:15 Monitor Mode: External (Genoveva Handy, RN) Frequency (min): 2-3 (Genoveva Handy, RN) Quality: Mild/Moderate (Genoveva Handy, RN) Duration (sec): 50-60 (Genoveva Handy, RN) Resting Tone (Palpate): Relaxed (Genoveva Handy, RN) Monitor Mode: External US (Genoveva Handy, RN) FHR Baseline Rate : 125 (Genoveva Handy, RN) Variability: Minimal - Undetectable to <=5 bpm (Genovevasean Handy, RN) Accelerations: None (Genovevasean Handy, RN) Decelerations: None (Genoveva Ole, RN) Datetime: 08/15/2016 12:06 Monitor Interventions for UA: [place] Adjusted (Genoveva Handy, RN) Datetime: 08/15/2016 12:04 Monitor Interventions for UA: [place] Adjusted (Genoveva Handy RN) Datetime: 08/15/2016 12:00 Comments: unable to determine due to pt being in BR and on birthing ball, adjusting monitors (Genoveva Handy RN) Pitocin (milliunit): Pitocin Remains (milliunits) @ 10 (Genoveva Handy RN)
[2016-08-15] MEDS ORDERED: MISOPROSTOL 0.2 MG TABLET ONE (14:15)
[2016-08-15] MEDS ORDERED: MEASLES,MUMPS&RUBELLA VACC/PF 0.5 ML VIAL SUBCUT PRN (15:17)
[2016-08-15] MEDS ORDERED: DIPH/PERTUSS(ACELL)/TETANUS VAC/PF 0.5 ML SYR (>=10YO) IM PRN (15:17)
[2016-08-15] MEDS ORDERED: ZOLPIDEM TARTRATE 5 MG TABLET PO PRN (15:17)
[2016-08-15] MEDS ORDERED: BENZOCAINE/MENTHOL AEROSOL SPRAY 56 ML TOP PRN (15:17)
[2016-08-15] MEDS ORDERED: ACETAMINOPHEN WITH CODEINE #3 TABLET PO PRN ×2 (15:17)
[2016-08-15] MEDS ORDERED: DIBUCAINE 1% OINTMENT 28 GM TP PRN (15:17)
--- NOTE | 2016-08-15 15:18 | Delivery Summary ---
Del Sum A-C Datetime Report Generated by CPN: 08/15/2016 15:17 ADMISSION DATA Chief Complaint: Suspected Ruptured Membranes Chief Complaint Comments: 0100 clear Indication for Induction: Not Applicable Admission Impression: Term, Intrauterine ; No Active Labor; Ruptured Membranes Admit Provider Comments: SROM at 0100 clear, gbs negative, amnisure + See hx for complete medical, surgical, ob hx AMA hx gastric bypass, frequent hypoglycemic episodes during this Will Admit to L _ D Pitocin for labor augmentation Pt does not desire epidural Anticipate DELIVERY PERSONNEL Delivery Doctor:: eBbe Acuna CNM Labor and Delivery Nurse:: Genoveva Handy RNstudent nurse Nurse:: Elsy Maher RN Nursery Nurse:: Vicky Hernandez RN Sales Performance Analyst/IT SUPPORT SPECIALIST: Shameka Cardozo CNA II Sales Performance Analyst/IT SUPPORT SPECIALIST: Khadijah Love ST MATERNAL INFORMATION Delivery Anesthesia: None Medications After Delivery: Pitocin Bolus-Please Comment; Pitocin Drip 20 Units/1000ml NSS Estimated Blood Loss (ml): 200 Maternal Complications: None Provider Comments: of viable male over intact perineum, head, shoulder, and body delivered without difficulty. Infant with spontaneous cry and respirations to maternal abdomen, cord clamped X2, and infant cut free after pulsating stopped per pts request. Spontaneous delivery of intact placenta via lacy mechanism, 3 VC. Vagina and perineum inspected, no lacerations noted. Hemostasis acheived with external fundal massage and IV pitocin. Mother and in stable condition, routine pp care. LABOR SUMMARY EDC: 08/24/2016 00:00 No. Babies in Womb: 1 Attempted: No Labor Anesthesia: None LABOR INFORMATION Reason for Induction: Not Applicable Onset of Labor: 08/15/2016 10:35 Complete Dilatation: 08/15/2016 13:22 Oxytocin: Augmentation Group B Beta Strep: Negative Antibiotics # of Doses: 0 Steroids Given: None Reason Steroids Not Administered: Not Applicable MEMBRANES Membranes Rupture Method: Spontaneous Rupture of Membranes: 08/15/2016 01:00 Length of Rupture (hr): 12.48 Amniotic Fluid Color: Clear Amniotic Fluid Amount: None Amniotic Fluid Odor: Normal STAGES OF LABOR Stage 1 hr: 2 Stage 1 min: 47 Stage 2 hr: 0 Stage 2 min: 7 Stage 3 hr: 0 Stage 3 min: 5 Total Time in Labor hr: 2 Total Time in Labor min: 59 VAGINAL DELIVERY Episiotomy: None Laceration Extension: N/A Laceration Type: None Laceration Repair: Not Applicable Laceration Repair Note: n/a Sharps Count Correct: N/A CSECTION DELIVERY Primary Indication: N/A Secondary Indication: N/A CSection Incidence: N/A Labor: N/A Elective: N/A CSection Incision: N/A BABY A INFORMATION Delivery Date/Time: 08/15/2016 13:29 Method of Delivery: Vaginal Born in Route : No : N/A Forceps: N/A Vacuum Extraction: N/A Shoulder Dystocia : No PRESENTATION/POSITION BABY A Presentation: Cephalic Cephalic Presentation: Vertex Vertex Position: Left Occipital Anterior Breech Presentation: N/A PLACENTA INFORMATION BABY A Placenta Delivery Time : 08/15/2016 13:34 Placenta Method of Delivery: Spontaneous Placenta Status: Delivered SCORES BABY A Heart Rate 1 min: >100 bpm Resp Effort 1 min: Good Cry Reflex Irritability 1 min: Cough or Sneeze or Pulls Away Muscle Tone 1 min: Active Motion Color 1 min: Blue/Pale Resuscitation Effort 1 min: Tactile Stimulation SCORE 1 MIN: 8 Heart Rate 5 min: >100 bpm Resp Effort 5 min: Good Cry Reflex Irritability 5 min: Cough or Sneeze or Pulls Away Muscle Tone 5 min: Active Motion Color 5 min: Body [place], Extremities Blue Resuscitation Effort 5 min: N/A SCORE 5 MIN: 9 Resuscitation Effort 10 min: N/A INFORMATION BABY A Gestational Age at Delivery: 38.5 Gestational Status: Early Term- 37- 38.6 Weeks Infant Outcome : Liveborn Infant Condition : Stable Sex: Male IDENTIFICATION BABY A Infant Verification Date/Time: 08/15/2016 13:49 ID Band Number: [id number] Mother's Name Verified: Yes Infant RN Verifying : Kelly London RN WEIGHT/LENGTH BABY A Infant Birthweight (gm): 3070 Infant Weight (lb): 6 Weight (oz): 12 Length (in): 19.00 Infant Length (cm): 48.26 CORD INFORMATION BABY A No. Cord Vessels: 3 Nuchal Cord : N/A Cord Blood Taken: Yes-For Storage (Mom's Blood type +) Suction: Mouth; Nose ASSESSMENT BABY A Infant Complications: None Physical Findings at Delivery: Within Normal Limits Physical Findings- Other: Baby to nursery at 1457 with Rodríguez Hernandez RN Infant Respirations: Appears Normal Skin to Skin: Yes Embosser Apprentice/ALS Called : No Care By: Rodríguez Hernandez RN Transferred To: [facility] BABY B INFORMATION : N/A SIGNATURES Assignment: Luciana Munson MD Signature: with User ID: Michael : with User ID: Michael
--- NOTE | 2016-08-15 16:04 | Admission Physical ---
Datetime Report Generated by CPN: 08/15/2016 16:03 CURRENT ADMISSION Hx Assessment: The History has been Reviewed and is Current Chief Complaint: Suspected Ruptured Membranes Chief Complaint Other: 0100 clear Indication for Induction: Not Applicable Admit Plan: Admit to Unit; Initiate Labor Augmentation Protocol ALLERGIES Medication Allergies: No Medication Allergies: No Known Allergies (08/15/2016) Latex: No Latex Allergies Food Allergies: denies Environmental Allergies: denies OBSTETRICAL HISTORY EDC: 08/24/2016 00:00 : 3 Para: 1 Term: 1 : 0 SAB: 1 IAB: 0 Ectopic: 0 Livin Cesareans: 0 VBACs: 0 Multiple Births: 0 Gestational Diabetes: Yes Rh Sensitization: No Incompetent Cervix: No LETICIA: No Infertility: No ART Treatment: No Uterine Anomaly: No IUGR: No Hx Previous C/S: No Macrosomia: No Hx Loss/Stillborn: No PIH: No Hx : No Placenta Previa/Abruption: No Depression/PP Depression: No PTL/PROM: No Post Hemorrhage: No Current Procedures: Ultrasound Obstetrical History Comments: G1: Jul 2014 G2: Jul 2015 8 weeks SAB G3: current SEE RECORDS Alcohol: No Marijuana : No Cocaine: No Other Illicit Drugs: No Cigarettes: Never Smoker. [id number] MEDICAL HISTORY Diabetes: Yes Diabetes Type: Gestational Diabetes Blood Transfusion: No Pulmonary Disease (Asthma, TB): No Breast Disease: No Hypertension: No Wheat Shipper Surgery: No Heart Disease: No Hosp/Surgery: Yes Autoimmune Disorder: No Anesthetic Complications: No Kidney Disease: No Abnormal Pap Smear: No Neuro/Epilepsy: No Psychiatric Disorders: No Other Medical Diseases: No Hepatitis/Liver Disease: No Significant Family History: No Varicosities/Phlebitis: No Trauma/Violence : No Thyroid Dysfunction: No Medical History Comments: GDM - diet controlled, gastic bypass, IVF, laproscoptomy, ovarian drilling INFECTIOUS HISTORY Gonorrhea: No Genital Herpes: No Chlamydia: No Tuberculosis: No Syphilis: No Hepatitis: No HIV/AIDS Exposure: No Rash or Viral Illness: No HPV: No PHYSICAL EXAM General: Normal HEENT: Normal Neurologic: Normal Thyroid: Deferred Heart: Normal Lungs: Normal Breast: Normal Back: Normal Abdomen: Normal Genitourinary Exam: Normal Extremities: Normal DTRs: Normal Pelvic Type: Adequate Physical Exam Comments: proven to 6lbs 6 oz Vital Signs: Reviewed VAGINAL EXAM Dilatation: 3 Effacement: 80 Station: -1 Contraction Comments: irregular MEMBRANES Membranes: Ruptured Amniotic Fluid Color: Clear FETUS A EGA: 38.5 Monitoring: External US FHR- Baseline: 125 Variability: Moderate 6-25bpm Accelerations: 15X15 Decelerations: None FHR Category: Category I Presentation: Vertex Admit Comment: SROM at 0100 clear, gbs negative, amnisure + See hx for complete medical, surgical, ob hx AMA hx gastric bypass, frequent hypoglycemic episodes during this Will Admit to L _ D Pitocin for labor augmentation Pt does not desire epidural Anticipate PLANS FOR LABOR AND DELIVERY Pain Management: None Feeding Preference: Breast Benefit of Breast Feed Discussed: Yes Circumcision: Yes INFORMED CONSENT Assignment: Luciana Munson MD Signature: with User ID: Michael : with User ID: Michael
[2016-08-15] MEDS: DOCUSATE SODIUM 100 MG CAPSULE PO SCH (18:27)
[2016-08-15] MEDS: FERROUS SULFATE 325 MG TABLET PO SCH (18:28)
--- NOTE | 2016-08-15 19:01 | L&D Flow Sheet ---
LD Flowsheet Datetime Report Generated by CPN: 08/15/2016 19:00 Datetime: 08/15/2016 15:24 Stage of : Recovery (Genoveva Handy RN) NBP Sys/Nora/Mean (mmHg): 105 (QS system process) : 67 (QS system process) : 81 (QS system process) Pulse: 81 (QS system process) Pain Scale: 0 (Genoveva Handy RN) Pain Presence: None/Denies (CHIQUIS Chacon Pain Type: N/A (Genoveva Handy RN) Datetime: 08/15/2016 15:09 Stage of : Recovery (Genovevasean Handy, RN) NBP Sys/Nora/Mean (mmHg): 111 (QS system process) : 69 (QS system process) : 86 (QS system process) Pulse: 76 (QS system process) Pain Scale: 0 (Genoveva Handy, RN) Pain Presence: None/Denies (Genovevasean Handy, RN) Pain Type: N/A (Genoveva Handy, RN) Datetime: 08/15/2016 14:54 Stage of : Recovery (Genoveva Handy, RN) NBP Sys/Nora/Mean (mmHg): 113 (QS system process) : 67 (QS system process) : 84 (QS system process) Pulse: 85 (QS system process) Pain Scale: 0 (Genoveva Handy, RN) Pain Presence: None/Denies (Genoveva Handy, RN) Pain Type: N/A (Genoveva Handy, RN) Datetime: 08/15/2016 14:39 Stage of : Recovery (Genoveva Handy, RN) NBP Sys/Nora/Mean (mmHg): 116 (QS system process) : 58 (QS system process) : 74 (QS system process) Pulse: 87 (QS system process) Pain Scale: 0 (Genoveva Handy RN) Pain Presence: None/Denies (Genoveva Handy RN) Pain Type: N/A (Genoveva Handy RN) Datetime: 08/15/2016 14:09 Stage of : Recovery (Genoveva Handy RN) NBP Sys/Nora/Mean (mmHg): 107 (QS system process) : 65 (QS system process) : 82 (QS system process) Pulse: 69 (QS system process) Pain Scale: 0 (Genoveva Handy RN) Pain Presence: None/Denies (Genoveva Handy RN) Pain Type: N/A (Genoveva Handy RN) Datetime: 08/15/2016 13:54 Stage of : Recovery (Genoveva Handy RN) NBP Sys/Nora/Mean (mmHg): 107 (QS system process) : 63 (QS system process) : 79 (QS system process) Pulse: 88 (QS system process) Pain Scale: 0 (Genoveva Handy RN) Pain Presence: None/Denies (Genoveva Handy RN) Pain Type: N/A (Genoveva Handy RN) Datetime: 08/15/2016 13:39 Stage of : Recovery (Genoveva Handy RN) NBP Sys/Nora/Mean (mmHg): 107 (QS system process) : 62 (QS system process) : 81 (QS system process) Pulse: 85 (QS system process) Temperature (F): 97.7 (Genoveva Handy RN) Temperature (C): 36.5 (QS system process) Pain Scale: 0 (Genoveva Handy RN) Pain Presence: None/Denies (Genoveva Handy RN) Pain Type: N/A (Genoveva Handy RN) Datetime: 08/15/2016 13:34 Stage of : Recovery (Genoveva Handy RN) Datetime: 08/15/2016 13:31 NBP Sys/Nora/Mean (mmHg): 127 (QS system process) : 74 (QS system process) : 96 (QS system process) Pulse: 92 (QS system process) LaborFlag: Labor (QS system process) Datetime: 08/15/2016 13:25 Pushing: Coached on Pushing; Urge to Push (Genoveva Handy RN) Pushing Position: Pushing with Contractions (Genoveva Handy RN) Pushing Progress: Descent with Pushing (Genoveva Handy RN) Preparation for Delivery: Setup for Delivery (Genoveva Handy RN) Communication Comments: H. Armand CNM at bedside (Genoveva Handy RN) Datetime: 08/15/2016 13:22 Dilatation (cm): 10.0 (Genoveva Handy RN) Effacement (%): 100 (Genoveva Handy RN) Station: 2 (Genoveva Handy RN) Exam by: Sean Handy RN (Genoveva Handy RN) Datetime: 08/15/2016 13:15 Monitor Mode: External (Genoveva Handy RN) Frequency (min): 2-4 (Genoveva Handy RN) Quality: Mild/Moderate (Genoveva Handy RN) Duration (sec): 30-50 (Genoveva Handy RN) Resting Tone (Palpate): Relaxed (Genoveva Handy RN) Monitor Mode: External US (Genoveva Handy RN) FHR Baseline Rate : 125 (Genoveva Handy RN) Variability: Minimal - Undetectable to <=5 bpm (Genoveva Handy RN) Accelerations: None (Genoveva Handy RN) Decelerations: None (Genoveva Handy RN) Pitocin (milliunit): Pitocin Increased to (milliunits) @ 14 (Genoveva Handy RN) Datetime: 08/15/2016 13:12 I/O Interventions: Popsicle (Genoveva Handy RN) Datetime: 08/15/2016 13:02 NBP Sys/Nora/Mean (mmHg): 154 (QS system process) : 67 (QS system process) : 97 (QS system process) Pulse: 106 (QS system process) LaborFlag: Labor (QS system process) Datetime: 08/15/2016 13:00 Monitor Mode: External (Genoveva Handy RN) Frequency (min): 2-3 (Genoveva Handy RN) Quality: Mild/Moderate (Genoveva Handy RN) Duration (sec): 30-60 (Genoveva Handy RN) Resting Tone (Palpate): Relaxed (Genoveva Handy RN) Monitor Mode: External US (Genoveva Handy RN) FHR Baseline Rate : 125 (Genoveva Handy RN) Variability: Moderate 6-25 bpm (Genoveva Handy RN) Accelerations: 15X15 (Genoveva Handy RN) Decelerations: None (Genoveva Handy RN) Pitocin (milliunit): Pitocin Remains (milliunits) @ 12 (Genoveva Handy, RN) Datetime: 08/15/2016 12:51 Respirations: 16 (Genoveva Ole, RN) Temperature (F): 97.5 (Genoveva Ole, RN) Temperature (C): 36.4 (QS system process) LaborFlag: Labor (QS system process) Datetime: 08/15/2016 12:46 Analgesics/Sedatives: Nubain (mg) @ 10; Phenergan (mg) @ 12.5 (Genoveva Handy, RN) Datetime: 08/15/2016 12:45 Monitor Mode: External (Genoveva Handy, RN) Frequency (min): 1.5-3 (Genoveva Handy RN) Quality: Mild/Moderate (Genoveva Handy RN) Duration (sec): 40-70 (Genoveva Handy RN) Resting Tone (Palpate): Relaxed (Genoveva Handy RN) Monitor Mode: External US (Genoveva Handy RN) FHR Baseline Rate : 125 (Genoveva Handy RN) Variability: Moderate 6-25 bpm (Genoveva Handy RN) Accelerations: 10X10 (Genoveva Handy RN) Decelerations: None (Genoveva Handy RN) Pitocin (milliunit): Pitocin Increased to (milliunits) @ 12 (Genoveva Handy RN) Datetime: 08/15/2016 12:37 Dilatation (cm): 4.0 (Genoveva Handy RN) Effacement (%): 90 (Genoveva Hnady RN) Station: -1 (Genoveva Handy RN) Exam by: Johnson Acuna CNM (Genoveva Handy, RN) Communication Comments: Orders received to give 10mg Nubain and 12.5mg Phenergan per Johnson Acuna CNM (Genoveva Handy, RN) Datetime: 08/15/2016 12:36 Pain Presence: Intermittent (Genoveva Handy RN) Pain Type: Contraction (Genoveva Handy RN) Pain Location: Abdomen (Genoveva Handy RN) Pain Coping: Breathing Through Contractions; Requesting Pain Medication or Epidural; Crying (Genoveva Handy RN) LaborFlag: Labor (QS system process) Datetime: 08/15/2016 12:31 Monitor Interventions for UA: [place] Adjusted (Genoveva Handy RN) Datetime: 08/15/2016 12:30 Monitor Mode: External (Genoveva Handy RN) Frequency (min): 2-3 (Genoveva Handy RN) Quality: Mild/Moderate (Genoveva Handy RN) Duration (sec): 40-60 (Genoveva Handy RN) Duration Criteria: Less than Two 120 Second Contractions (Genoveva Handy RN) Pattern: Normal: <= 5 Contractions in 10 Minutes (Genoveva Handy RN) Resting Tone (Palpate): Relaxed (Genoveva Handy RN) Monitor Mode: External US (Genoveva Handy RN) FHR Baseline Rate : 125 (Genoveva Handy RN) Variability: Moderate 6-25 bpm (Genoveva Handy RN) Accelerations: None (Genoveva Handy RN) Decelerations: None (Genoveva Handy RN) Pitocin (milliunit): Pitocin Remains (milliunits) @ 10 (Genoveva Handy RN) Datetime: 08/15/2016 12:28 Patient Position/Activity: Right Lateral (Genoveva Handy RN) Datetime: 08/15/2016 12:15 Monitor Mode: External (Genoveva Handy RN) Frequency (min): 2-3 (Genoveva Handy RN) Quality: Mild/Moderate (Genoveva Handy RN) Duration (sec): 50-60 (Genoveva Handy RN) Resting Tone (Palpate): Relaxed (Genoveva Handy RN) Monitor Mode: External US (Genoveva Handy RN) FHR Baseline Rate : 125 (Genoveva Handy RN) Variability: Minimal - Undetectable to <=5 bpm (Genoveva Handy RN) Accelerations: None (Genoveva Handy, RN) Decelerations: None (Genoveva Handy, RN) Datetime: 08/15/2016 12:06 Monitor Interventions for UA: [place] Adjusted (Genoveva Ole, RN) Datetime: 08/15/2016 12:04 Monitor Interventions for UA: [place] Adjusted (Genoveva Ole, RN) Datetime: 08/15/2016 12:00 Comments: unable to determine due to pt being in BR and on birthing ball, adjusting monitors (Genoveva Handy RN) Pitocin (milliunit): Pitocin Remains (milliunits) @ 10 (Genoveva Handy, RN) Datetime: 08/15/2016 11:56 Monitor Interventions for FHR: Ultrasound Adjusted (Genoveva Handy, RN) Patient Position/Activity: Birthing Ball (Genoveva Handy, RN) Communication: RN at Bedside (Genoveva Handy, RN) Datetime: 08/15/2016 11:48 I/O Interventions: Up to BR (Genoveva Ole, RN) Datetime: 08/15/2016 11:45 Monitor Mode: External; Palpation (Genoveva Handy, RN) Frequency (min): 3-5 (Genoveva Handy RN) Quality: Mild/Moderate (Genoveva Handy, RN) Duration (sec): 50-80 (Genoveva Handy RN) Resting Tone (Palpate): Relaxed (Genoveva Handy RN) Monitor Mode: External US (Genoveva Handy RN) FHR Baseline Rate : 125 (Genoveva Handy, RN) Variability: Moderate 6-25 bpm (Genoveva Handy, RN) Accelerations: 15X15 (Genoveva Handy, RN) Decelerations: Early (Genoveva Handy, RN) Pitocin (milliunit): Pitocin Increased to (milliunits) @ 10 (Genoveva Handy RN) Datetime: 08/15/2016 11:31 NBP Sys/Nora/Mean (mmHg): 110 (QS system process) : 65 (QS system process) : 83 (QS system process) Pulse: 70 (QS system process) LaborFlag: Labor (QS system process) Datetime: 08/15/2016 11:30 Monitor Mode: External (Genoveva Handy, RN) Frequency (min): irreg (Genoveva Handy, RN) Quality: Mild (Genoveva Handy, RN) Duration (sec): 30-50 (Genoveva Handy, RN) Resting Tone (Palpate): Relaxed (Genoveva Handy, RN) Monitor Mode: External US (Genoveva Handy, RN) FHR Baseline Rate : 135 (Genoveva Handy, RN) Variability: Moderate 6-25 bpm (Genoveva Handy, RN) Accelerations: 15X15 (Genoveva Handy, RN) Decelerations: None (Genoveva Handy, RN) Pitocin (milliunit): Pitocin Increased to (milliunits) @ 8 (Genoveva Handy, RN) Datetime: 08/15/2016 11:15 Monitor Mode: External (Genoveva Handy, RN) Frequency (min): none (Genoveva Handy, RN) Resting Tone (Palpate): Relaxed (Genoveva Handy, RN) Monitor Mode: External US (Genovevasean Handy, RN) FHR Baseline Rate : 135 (Genoveva Handy, RN) Variability: Moderate 6-25 bpm (Genoveva Handy, RN) Accelerations: 15X15 (Genoveva Handy, RN) Decelerations: None (Genoveva Handy, RN) Pitocin (milliunit): Pitocin Increased to (milliunits) @ 6 (Genoveva Handy, RN) Datetime: 08/15/2016 11:01 NBP Sys/Nora/Mean (mmHg): 109 (QS system process) : 79 (QS system process) : 90 (QS system process) Pulse: 70 (QS system process) LaborFlag: Labor (QS system process) Datetime: 08/15/2016 11:00 Monitor Mode: External (Genoveva Handy RN) Frequency (min): x2 (Genoveva Handy RN) Quality: Mild (Genoveva Handy RN) Duration (sec): 70-90 (Genoveva Handy RN) Resting Tone (Palpate): Relaxed (Genoveva Handy RN) Monitor Mode: External US (Genoveva Handy RN) FHR Baseline Rate : 125 (Genoveva Handy RN) Variability: Minimal - Undetectable to <=5 bpm (Geonveva Handy RN) Accelerations: None (Genoveva Handy RN) Decelerations: None (Genoveva Handy RN) Pitocin (milliunit): Pitocin Increased to (milliunits) @ 4 (Genoveva Handy RN) Datetime: 08/15/2016 10:46 Monitor Interventions for FHR: Ultrasound Adjusted (Genovevasean Handy, RN) Patient Position/Activity: Left Lateral (Genoveva Handy, RN) Datetime: 08/15/2016 10:45 Monitor Mode: External (Genoveva Handy, RN) Frequency (min): x2 (Genoveva Handy, RN) Quality: Mild (Genoveva Handy, RN) Duration (sec): 50-60 (Genovevasean Handy, RN) Resting Tone (Palpate): Relaxed (Genoveva Handy, RN) Monitor Mode: External US (Genoveva Handy, RN) FHR Baseline Rate : 125 (Genoveva Handy, RN) Variability: Moderate 6-25 bpm (Genoveva Handy, RN) Accelerations: 15X15 (Genoveva Handy, RN) Decelerations: None (Genoveva Handy, RN) Pitocin (milliunit): Pitocin Remains (milliunits) @ 2 (Genoveva Handy, RN) Datetime: 08/15/2016 10:35 Pitocin (milliunit): Pitocin Started (milliunits) @ 2; Pitocin 20 Units in 1000ml NS (Genoveva Handy, RN) Datetime: 08/15/2016 10:30 Monitor Mode: External (Genoveva Handy, RN) Frequency (min): none (Genoveva Handy, RN) Resting Tone (Palpate): Relaxed (Genoveva Handy, RN) Monitor Mode: External US (Genoveva Handy, RN) FHR Baseline Rate : 135 (Genoveva Handy, RN) Variability: Moderate 6-25 bpm (Genoveva Handy, RN) Accelerations: 15X15 (Genoveva Handy, RN) Decelerations: None (Genoveva Handy, RN) Datetime: 08/15/2016 10:21 IV/Blood Work: IV Started; IV Bolus Started (Genoveva Handy, RN) Datetime: 08/15/2016 10:01 NBP Sys/Nora/Mean (mmHg): 114 (QS system process) : 71 (QS system process) : 87 (QS system process) Pulse: 74 (QS system process) LaborFlag: Labor (QS system process) Datetime: 08/15/2016 10:00 Monitor Mode: External (Genoveva Hnady, RN) Frequency (min): none (Genoveva Hanyd, RN) Resting Tone (Palpate): Relaxed (Genoveva Handy, RN) Monitor Mode: External US (Genoveva Handy, RN) FHR Baseline Rate : 135 (Genoveva Handy, RN) Variability: Moderate 6-25 bpm (Genoveva Handy, RN) Accelerations: 15X15 (Genoveva Handy, RN) Decelerations: None (Genoveva Handy, RN) Datetime: 08/15/2016 09:30 Monitor Mode: External (Genoveva Handy RN) Frequency (min): none (Genoveva Handy RN) Resting Tone (Palpate): Relaxed (Genoveva Handy RN) Monitor Mode: External US (Genoveva Handy RN) FHR Baseline Rate : 135 (Genoveva Handy RN) Variability: Moderate 6-25 bpm (Genoveva Handy RN) Accelerations: 15X15 (Genoveva Handy RN) Decelerations: None (Genoveva Handy RN) Datetime: 08/15/2016 09:26 Frequency (min): 5-6 (Genoveva Handy RN) Pain Scale: 4 (Genoveva Handy RN) Pain Presence: Intermittent (Genoveva Handy RN) Pain Type: Contraction (Genoveva Handy RN) Pain Location: Abdomen (Genoveva Handy RN) Vaginal Bleeding: Scant (Genoveva Handy RN) Level of Consciousness: Fully Conscious (Genoveva Handy RN) DTR's/Clonus: DTRs 2+; No Clonus (Genoveva Handy RN) Headache: Denies (Genoveva Handy RN) Breath Sounds, Left: Clear and Equal (Genoveva Handy RN) Breath Sounds, Right: Clear and Equal (Genoveva Handy RN) Nausea/Vomiting: Denies (Genoveva Handy RN) RUQ Epigastric Pain: Denies (Genoveva Handy RN) Instructional Method: Verbal; Patient Instructed; Family/Support Person Instructed; Verbalized Understanding (Genoveva Handy RN) Plan of Care: Plan of Care Discussed (Genoveva Handy RN) Unit Routine: [place] to Room; Call Chávez; Bed; Handwashing; Bathroom Privileges (Genoveva Handy RN) LaborFlag: Labor (QS system process) Datetime: 08/15/2016 09:19 Dilatation (cm): 3.0 (Genoveva Handy RN) Effacement (%): 60 (Genoveva Handy RN) Station: -2 (Genoveva Handy RN) Exam by: Kelly Handy RN (Genoveva Handy RN) Datetime: 08/15/2016 09:16 NBP Sys/Nora/Mean (mmHg): 107 (QS system process) : 78 (QS system process) : 86 (QS system process) Pulse: 90 (QS system process) LaborFlag: Labor (QS system process) Datetime: 08/15/2016 09:13 Stage of : Labor (Genoveva Handy RN) Patient Position/Activity: Right Lateral (Genoveva Handy RN) I/O Interventions: Popsicle; Clear Liquids Given (Genoveva Handy RN)
[2016-08-15] MEDS: IBUPROFEN 800 MG TABLET PO SCH (22:55)
[2016-08-16] MEDS: IBUPROFEN 800 MG TABLET PO SCH ×3 (06:01→21:16)
--- NOTE | 2016-08-16 06:01 | L&D General Admission ---
General Admit Datetime Report Generated by CPN: 08/16/2016 06:00 INFORMATION Patient Age: 35 (05/08/2016 08:24:QS system process) EDC: 08/24/2016 00:00 (05/08/2016 08:41:Amee Munson RN) LMP: 11/16/2015 00:00 (05/08/2016 08:41:Genoveva Handy RN) : 3 (05/08/2016 08:41:Genoveva Handy RN) Para: 1 (08/12/2016 22:04:Audelia Hill RN) Term: 1 (05/08/2016 08:41:Luciana Whitmore RN) : 0 (05/08/2016 08:41:Luciana Whitmore RN) Spontaneous Abortions: 1 (05/08/2016 08:41:Luciana Whitmore RN) Induced Abortions: 0 (05/08/2016 08:41:Luciana Whitmore RN) Livin (05/08/2016 08:41:Genoveva Handy RN) Cesareans: 0 (05/08/2016 08:41:Luciana Whitmore RN) VBACs: 0 (05/08/2016 08:41:Luciana Whitmore RN) Ectopic: 0 (05/08/2016 08:41:Luciana Whitmore RN) Multiple Births: 0 (05/08/2016 08:41:Luciana Whitmore RN) Baby, Number in Womb: 1 (08/12/2016 22:04:Audelia Hill RN) CARE Primary Riveter Helper: [facility] (05/08/2016 08:41:Genoveva Handy RN) Riveter Helper Other: JENNI (05/08/2016 08:41:Genoveva Handy RN) Month of 1st Visit: February (05/08/2016 08:41:Amee Munson RN) Adequate Care: Yes (05/08/2016 08:41:Amee Munson RN) Prepregnancy Weight (lb): 145 (05/08/2016 08:41:Genoveva Handy RN) Prepregnancy Weight (kg): 65.9 (05/08/2016 08:41:QS system process) Height (in): 62 (08/15/2016 19:40:QS system process) ALLERGIES Medication Allergy: No (05/08/2016 08:41:Amee Munson RN) Medication Allergies: No Known Allergies (08/15/2016) (08/15/2016 09:06:QS system process) Latex Allergy: No Latex Allergies (05/08/2016 08:41:Amee Munson RN) Food Allergies: denies (05/08/2016 08:41:Amee Munson RN) Environmental Allergies: denies (05/08/2016 08:41:Amee Munson RN) COMMUNICATION Primary Language: Kuwaiti (05/08/2016 08:41:Amee Munson RN) Medical Tx Preferred Language: Kuwaiti (05/08/2016 08:41:Amee Munson RN) Communication Barrier(s): None (05/08/2016 08:41:Amee Munson RN) DEMOGRAPHICS Address: [address] [place] [id number] (05/08/2016 08:24:QS system process) Zipcode: [address] (05/08/2016 08:24:QS system process) Home (05/08/2016 08:24:QS system process) Work (08/15/2016 09:03:QS system process) SSN: [id number] (05/08/2016 08:24:QS system process) Next of Kin Name: LEANDRO BUCKLEY (05/08/2016 08:24:QS system process) Next of Kin (05/08/2016 08:24:QS system process) Next of Kin Relationship: FA (05/08/2016 08:24:QS system process) Date of : 1980 (05/08/2016 08:24:QS system process) Marital Status: Single (08/12/2016 20:47:QS system process) Sex: Female (05/08/2016 08:24:QS system process) Race: (05/08/2016 08:24:QS system process) Ethnicity: Non- or (05/08/2016 08:24:QS system process) Gnosticism: None (05/08/2016 08:24:QS system process) DRUG AND ALCOHOL USE Alcohol: No (05/08/2016 08:41:Amee Munson RN) Cigarettes: Never Smoker. [id number] (05/08/2016 08:41:Amee Munson RN) Marijuana: No (05/08/2016 08:41:Amee Munson RN) Cocaine: No (05/08/2016 08:41:Amee Munson RN) Other Illicit Drugs: No (05/08/2016 08:41:Amee Munson RN) VACCINE HISTORY Influenza Vaccine: No (05/08/2016 08:41:Amee Munson RN) Pneumococcal Vaccine: No (05/08/2016 08:41:Amee Munson RN) Tetanus Vaccine: Yes (05/08/2016 08:41:Genoveva Handy RN) Tdap Vaccine: Yes (05/08/2016 08:41:Genoveva Handy RN) Hepatitis B Vaccine: Yes (05/08/2016 08:41:Genoveva Handy RN) Client Technical Support Associate: [facility] (05/08/2016 08:41:Amee Munson RN) Feeding Preference: Breast (05/08/2016 08:41:Genoveva Handy RN) Benefit of Breast Feed Discussed: Yes (05/08/2016 08:41:Amee Munson RN) Circumcision: Yes (05/08/2016 08:41:Nelia Watts RN) Classes Attended: No (05/08/2016 08:41:Nelia Watts RN) Tubal Ligation: Yes (05/08/2016 08:41:Genoveva Handy RN) Tubal Authorization Signed: Yes (05/08/2016 08:41:Nelia Watts RN) Consent: N/A (05/08/2016 08:41:mAee Munson RN) Consent Signed: N/A (05/08/2016 08:41:Amee Munson RN) Pain Management Plans: None (05/08/2016 08:41:Amee Munson RN) Support Person: Fabrizio (05/08/2016 08:41:Amee Munson RN) Support Person Relationship: Significant Other (05/08/2016 08:41:Amee Munson RN) Cultural/Spritual Practice: No (05/08/2016 08:41:Amee Munson RN) Spir/Cult Dietary Needs: No (05/08/2016 08:41:Amee Munson RN) LIVING SITUATION/DISCHARGE PLAN Living Arrangements: House (05/08/2016 08:41:Amee Munson RN) Adequate Access to:: Electric; Heat; Refrigeration; Plumbing/Running water; Phone; Transportation (05/08/2016 08:41:Amee Munson RN) WIC Program: Yes (05/08/2016 08:41:Amee Munson RN) Discharge Air Value Tester Person: Fabrizio (05/08/2016 08:41:Nelia Watts RN) Person to Help after Discharge: Fabrizio (05/08/2016 08:41:Nelia Watts RN) Currently Using Commun Resources: No (05/08/2016 08:41:Amee Munson RN) Specify Current Resource Used: Medicaid (05/08/2016 08:41:Nelia Watts RN) Outside Agency/[address] Reporter: No (05/08/2016 08:41:mAee Munson RN) Car Seat for Discharge: Yes (05/08/2016 08:41:Nelia Watts RN) Adoption Requested: No (05/08/2016 08:41:Amee Munson RN) Pt Contact w/ Post : N/A (05/08/2016 08:41:Amee Munson RN) LABS Blood Type: B Positive (05/08/2016 08:41:Luciana Whitmore RN) Antibody Screen: Negative (05/08/2016 08:41:Luciana Whitmore RN) Rho(G) this : Not Applicable (05/08/2016 08:41:Luciana Whitmore RN) Hemoglobin: 10.3 L (08/15/2016 10:02:QS system process) Hematocrit: 31.3 L (08/15/2016 10:02:QS system process) MCV: 82 (08/15/2016 10:02:QS system process) Group Beta Strep: Negative (05/08/2016 08:41:Luciana Whitmore RN) Gonorrhea: Negative (05/08/2016 08:41:Luciana Whitmore RN) Chlamydia: Negative (05/08/2016 08:41:Luciana Whitmore RN) RPR/VDRL: Nonreactive (05/08/2016 08:41:Genoveva Handy RN) HIV Exposure Test: Negative (05/08/2016 08:41:Luciana Whitmore RN) HIV Results: Negative (05/08/2016 08:41:Luciana Whitmore RN) Hepatitis B: Negative (05/08/2016 08:41:Luciana Whitmore RN) Rubella: Immune (05/08/2016 08:41:Luciana Whitmore RN) Varicella: Non Susceptible (05/08/2016 08:41:Luciana Whitmore RN) OB/PREVIOUS HISTORY LMP: 11/16/2015 00:00 (05/08/2016 08:41:Genoveva Handy RN) Previous Procedures: Ultrasound; NST (05/08/2016 08:41:Amee Munson RN) Current Procedures: Ultrasound (05/08/2016 08:41:Amee Munson RN) History of Previous : No (05/08/2016 08:41:mAee Munson RN) History of Gestational Diabetes: Yes (05/08/2016 08:41:Genoveva Handy RN) History of PIH: No (05/08/2016 08:41:Amee Munson RN) History of Incompetent Cervix: No (05/08/2016 08:41:Amee Munson RN) History of Placenta Previa/Abrup: No (05/08/2016 08:41:Amee Munson RN) History of Macrosomia: No (05/08/2016 08:41:Amee Munson RN) History of IUGR: No (05/08/2016 08:41:Amee Munson RN) History of Hemorrhage: No (05/08/2016 08:41:Amee Munson RN) History of Loss/Stillborn: No (05/08/2016 08:41:Amee Munson RN) History of : No (05/08/2016 08:41:Amee Munson RN) History of D (Rh) Sensitization: No (05/08/2016 08:41:Amee Munson RN) History Recurrent Loss/Stillborn: No (05/08/2016 08:41:Amee Munson RN) History Depression/PP Depression: No (05/08/2016 08:41:Amee Munson RN) History of Uterine Anomaly/LETICIA: No (05/08/2016 08:41:Amee Munson RN) History of Infertility: No (05/08/2016 08:41:Amee Munson RN) History of ART Treatment: No (05/08/2016 08:41:Amee Munson RN) History of LETICIA: No (05/08/2016 08:41:Amee Munson RN) Comments Obstetrical History: G1: Jul 2014 G2: Jul 2015 8 weeks SAB G3: current (05/08/2016 08:41:Amee Munson RN) MEDICAL HISTORY Med Hx Diabetes: Yes (05/08/2016 08:41:Genoveva Handy RN) Diabetes Type: Gestational Diabetes (05/08/2016 08:41:Genoveva Handy RN) Med Hx Hypertension: No (05/08/2016 08:41:Amee Munson RN) Med Hx Heart Disease: No (05/08/2016 08:41:Amee Munson RN) Med Hx Autoimmune Disorder: No (05/08/2016 08:41:Amee Munson RN) Med Hx Kidney Disease/UTI: No (05/08/2016 08:41:Amee Munson RN) Med Hx Neurologic/Epilepsy: No (05/08/2016 08:41:Amee Munson RN) Med Hx Psychiatric Disorders: No (05/08/2016 08:41:Amee Munson RN) Med Hx Hepatitis/Liver Disease: No (05/08/2016 08:41:Amee Munson RN) Med Hx Varicosities/Phlebitis: No (05/08/2016 08:41:Amee Munson RN) Med Hx Thyroid Dysfunction: No (05/08/2016 08:41:Amee Munson RN) Med Hx Trauma/Violence: No (05/08/2016 08:41:Amee Munson RN) Med Hx Blood Transfusion: No (05/08/2016 08:41:Amee Munson RN) Med Hx Pulmonary (Asthma,TB): No (05/08/2016 08:41:Amee Munson RN) Med Hx Breast: No (05/08/2016 08:41:Amee Munson RN) Med Hx CLINICAL APPLICATIONS SPECIALIST Surgery: No (05/08/2016 08:41:Amee Munson RN) Med Hx Hospitalization/Surgery: Yes (05/08/2016 08:41:Genoveva Handy RN) Med Hx Anesthetic Complications: No (05/08/2016 08:41:Amee Munson RN) Med Hx Abnormal Pap Smear: No (05/08/2016 08:41:Amee Munson RN) Other Medical Diseases: No (05/08/2016 08:41:Amee Munson RN) Med Hx Significant Family Hx: No (05/08/2016 08:41:Amee Munson RN) Details of Med/Surg Hx: GDM - diet controlled, gastic bypass, IVF, laproscoptomy, ovarian drilling (05/08/2016 08:41:Genoveva Handy RN) INFECTIOUS HISTORY Inf Hx Gonorrhea: No (05/08/2016 08:41:Amee Munson RN) Inf Hx Chlamydia: No (05/08/2016 08:41:Amee Munson RN) Inf Hx Syphilis: No (05/08/2016 08:41:Amee Munson RN) Inf Hx HIV/AIDS: No (05/08/2016 08:41:Amee Munson RN) Inf Hx Human Papilloma Virus: No (05/08/2016 08:41:Amee Munson RN) Inf Hx Pt/Partner Genital Herpes: No (05/08/2016 08:41:Amee Munson RN) Inf Hx Tuberculosis/Exposure: No (05/08/2016 08:41:Amee Munson RN) Inf Hx Hepatitis B,C: No (05/08/2016 08:41:Amee Munson RN) Inf Hx Rash or Viral Illness: No (05/08/2016 08:41:Amee Munson RN) GENETIC HISTORY Gen Hx Age >=35 at MIKY: Yes (05/08/2016 08:41:Genoveva Handy RN) Gen Hx Thalassemia: No (05/08/2016 08:41:Amee Munson RN) Gen Hx Congenital Heart Defect: No (05/08/2016 08:41:Amee Munson RN) Gen Hx Neural Tube Defect: No (05/08/2016 08:41:Amee Munson RN) Gen Hx Down's Syndrome: No (05/08/2016 08:41:Amee Munson RN) Gen Hx Karthik-Sachs: No (05/08/2016 08:41:Amee Munson RN) Gen Hx Cheli: No (05/08/2016 08:41:Amee Munson RN) Gen Hx Familial Dysautonomia: No (05/08/2016 08:41:Amee Munson RN) Gen Hx Sickle Cell Disease/Trait: No (05/08/2016 08:41:Amee Munson RN) Gen Hx Hemophilia/Blood Disorder: No (05/08/2016 08:41:Amee Munson RN) Gen Hx Cystic Fibrosis: No (05/08/2016 08:41:Amee Munson RN) Gen Hx Huntingtons Chorea: No (05/08/2016 08:41:Amee Munson RN) Gen Hx Mental Retardation/Autism: No (05/08/2016 08:41:Amee Munson RN) Gen Hx Tested for Fragile X: No (05/08/2016 08:41:Amee Munson RN) Gen Hx Other Inher/Chromosomal: No (05/08/2016 08:41:Amee Munson RN) Gen Hx Maternal Metabolic DO: No (05/08/2016 08:41:Amee Munson RN) Gen Hx Pt Father or FOB Defect: No (05/08/2016 08:41:Amee Munson RN) Gen Hx Other Genetic History: No (05/08/2016 08:41:Amee Munson RN) Gen Hx Drugs/Meds since LMP: No (05/08/2016 08:41:Amee Munson RN)
--- NOTE | 2016-08-16 06:01 | L&D Current Admission ---
Current Admit Datetime Report Generated by CPN: 08/16/2016 06:00 ADMISSION INFORMATION Current Admit Date/Time: 08/15/2016 09:59 (08/15/2016 09:26:Genoveva Handy RN) Reason for Admission: Onset of Labor (08/15/2016 09:26:Genoveva Handy RN) Chief Complaint: Contractions; Suspected Rupture of Membranes (08/15/2016 09:26:Genoveva Handy RN) Medications During : Vitamin (08/15/2016 09:26:Genoveva Handy RN) Meds During -Oth: azithromycin (08/15/2016 09:26:Genoveva Handy RN) EGA per Dates: 38.5 (08/15/2016 09:26:QS system process) Method of Arrival: Wheelchair (08/15/2016 09:26:Genoveva Handy RN) Admitted From: Home (08/15/2016 09:26:Genoveva Handy RN) Reason for Induction: Not Applicable (08/15/2016 09:26:Genoveva Handy RN) Records Available: Yes (08/15/2016 09:26:Genoveva Handy RN) General Admission Information: Reviewed (08/15/2016 09:26:Genoveva Handy RN) General Admission Reviewed By: Kelly Handy RN (08/15/2016 09:26:Genoveva Handy RN) BELONGINGS/ADVANCED DIRECTIVES Valuables/Personal Effects: None (08/15/2016 09:26:Genoveva Handy RN) Other Belongings: see consents (08/15/2016 09:26:Genoveva Handy RN) Disposition of Belongings: Kept with Patient (08/15/2016 09:26:Genoveva Handy RN) Advance Direct for Healthcare: No, and Wants No Information (08/15/2016 09:26:Genoveva Handy RN) Durable Power of Pilot Teacher: No (08/15/2016 09:26:Genoveva Handy RN) Living Will: Yes (08/15/2016 09:26:Genoveva Handy RN) Organ Donor: Yes (08/15/2016 09:26:Genoveva Handy RN) Pt Rights Information Given: Yes (08/15/2016 09:26:Genoveva Handy RN) Pt Understands Pt Rights: Yes (08/15/2016 09:26:Genoveva Handy RN) DOMESTIC VIOLANCE SCREENING Dom Viol Threatened/Hurt: No (08/15/2016 09:26:Genoveva Handy RN) Hx of Abuse/Neglect past 2yrs: No (08/15/2016 09:26:Genoveva Handy RN) Feel Unsafe Going Home: No (08/15/2016 09:26:Genoveva Handy RN) Addt'l Observ Indicating Abuse: No (08/15/2016 09:26:Genoveva Handy RN) Reason Unable to Complete Screen: N/A, Screen Completed (08/15/2016 09:26:Genoveva Handy RN) Considered Personal Harm/Suicide: No (08/15/2016 09:26:Genoveva Handy RN) NUTRITIONAL/FUNCTIONAL SCREENING Problem with Appetite >5 Days: No (08/15/2016 09:26:Genoveva Handy RN) Chew/Swallow Difficulties: No (08/15/2016 09:26:Genoveva Handy RN) Inappropriate Wt Gain/Loss: No (08/15/2016 09:26:Genoveva Handy RN) Presence Skin Breakdown/Ulcer: No (08/15/2016 09:26:Genoveva Handy RN) Special Diet: No (08/15/2016 09:26:Genoveva Handy RN) Pt Requests Motor And Generator Assembler Visit: No (08/15/2016 09:26:Genoveva Handy RN) Hx of Any of the Following?: N/A (08/15/2016 09:26:Genoveva Handy RN) New Diagnosis of: N/A (08/15/2016 09:26:Genoveva Handy RN) Requires Assist w/Ambulation: No (08/15/2016 09:26:Genoveva Handy RN) Uses Assist Device to Ambulate: No (08/15/2016 09:26:Genoveva Handy RN) Pt Requires Help w/ADL's: No (08/15/2016 09:26:Genoveva Handy RN)
--- NOTE | 2016-08-16 06:16 | L&D Care Plan ---
LD CARE PLANS Datetime Report Generated by CPKrystyna: 08/16/2016 06:15 Datetime: 08/15/2016 09:47 State: Risk For (SAAD [place]) Related To: Labor and Delivery Process; Treatment and Procedures; Post (SAAD [place]) Goal(s): Patients Pain will be Assessed and Managed; Patient will Verbalize Adequate Relief of Pain or the Ability to [place] with Current Pain (SAAD [place]) Interventions: Assess Pain Severity on Scale of 0 (None) to 5 (Severe); Assess Type, Location and Intensity of Pain Each Time Client Reports Discomfort and Notify Provider if Unusal Pain Develops; Encourage Proper Breathing and Relaxation Techniques; Offer Alternatives Such as Repositioning, Calm Environment, Massages, Diversional Activities, Ice Pack, Splinting, and Ambulation; Administer Analgesics as Ordered; Assist with Epidural Placement as Appropriate; Evaluate Therapeutic Effectiveness of Medication and Treatments (SAAD [place]) Outcome: Patient will Report Absence or Relief of Pain Consistent with Established Pain Goal (SAAD [place]) Status: Ongoing (SAAD [place]) Outcome: Patient will have a Decrease in Signs and Symptoms of Discomfort (Marissa Peres, RNC) Status: Ongoing (Marissa Peres, RNC) Outcome: Pain will be Controlled During Procedures (Marissa Peres, RNC) Status: Ongoing (Marissa Peres, RNC) State: Actual (Marissa Peres, RNC) Related To: Labor and Delivery Process; Fear of Unknown; Situational Crisis; Medical Interventions; Significant Life Event (Marissa Peres, RN) Goal(s): Patient will have Decreased Anxiety and be able to Function at Acceptable Levels (Marissa Peres, RNC) Interventions: Assess Verbal and Nonverbal Behavioral Indicators of Anxiety; Assist Patient to Identify and Verbalize Symptoms of Anxiety; Identify and Demonstrate Techniques to Control Anxiety; Assist Patient with Coping Mechanisms to Manage Anxiety; Provide Theraputic Touch for the Patient; Explain to Patient, Using a Calm Reassuring Approach and Nonmedical Terms, All Activities, Procedures, and Concerns; Instruct Patient and Family about Post Discharge Care, Limitations, Symptoms to Report and Resources Available (Marissa Peres, RNC) Outcome: Patient will Identify, Verbalize and Demonstrate Techniques to Control Anxiety (Marissa Peres, RNC) Status: Ongoing (Marissa Peres, RNC) Outcome: Patient's Posture, Facial Expressions, Gestures and Activity Level will Reflect Decreased Anxiety (Marissa Peres, RNC) Status: Ongoing (Marissa Peres, RNC) Outcome: Patient will Verbalize a Sense of Control and/or Acceptance of the Situation (Marissa Peres, RNC) Status: Ongoing (Marissa Peres, RN) Outcome: Patient will Identify and Utilize Support Person (Marissa Peres, RN) Status: Ongoing (Marissa Peres, RN) State: Actual (Marissa Peres, RN) Related To: Labor and Delivery Process; Treatment and Procedures; Impending Alterations in Family Dynamics; Feeding and Care; Community Resources and Available Support Mechanisms (Marissa Peres, RNC) Goal(s): Patient will Accurately Verbalize Understanding of Plan of Care and Treatment; Patient and Family will Accurately Verbalize Understanding of the Disease Process (Marissa Peres, RNC) Interventions: Assess Motivation and Willingness of Patient/Family to Learn; Assess Preferred Learning Mode: One to One Instruction, Reading, Videos, Group Discussion or Demonstration; Assess Barriers to Learning: Pain, Emotional State, Language Barrier, Cognitive Impairment, Visual or Hearing Deficits; Assess Patient and Family Knowledge of Disease Process, Medications and Treatment; Discuss Therapy and/or Treatment Options, Describe Rationale Behind Management, Therapy and Treatment Recommendations; Instruct Patient and Family on Signs and Symptoms to Report; Instruct Patient and Family on Medication Effects and Side Effects; Provide Appropriate and Timely Education Using Multiple Techniques; Provide Patient and Family with Support Group Information and Resources; Give Clear and Thorough Explanations and Demonstrations (Marissa Peres, RNC) Outcome: Patient and Family will Verbalize Understanding of Condition, Treatment and Signs and Symptoms to Report (Marissa Peres, RNC) Status: Ongoing (Marissa Peres, RNC) Outcome: Patient will Identify Perceived Learning Needs and Express Motivation to Learn (Marissa Peres, RNC) Status: Ongoing (Marissa Peres, RNC) Outcome: Patient will Verbalize Understanding of Desired Content, and/or Performs Desired Skill Prior to Discharge (Marissa Peres, RNC) Status: Ongoing (Marissa Peres, RNC) State: Risk For (Marissa Peres, RNC) Related To: Premature/Prolonged Rupture of Membranes; Invasive Procedures (Marissa Peres, RNC) Goal(s): The Patient will be Free of Infection, Vital Signs Stable and Lab Work within Normal Parameters (Marissa Peres, RNC) Interventions: Instruct and Reinforce Proper Handwashing, Hygiene, and Care Techniques to Patient and Family; Monitor Vital Signs; Monitor Patient for the Following Signs of Infection: Fever, Abdominal Tenderness, Unusual Discharge; Monitor Aminiotic Fluid, Urine and Lochia for Color and Odor; Observe Wounds, Incisions and Invasive Line Sites for Redness, Drainage and Edema; Assess IV Sites per Hospital Policy; Monitor Lab and Test Results and Notify Provider of Abnormal Findings; Assess Nutritional Status and Promote Good Nutrition (Marissa Peres, RNC) Outcome: Patient will Remain Free of Infection (Marissa Peres, RNC) Status: Ongoing (Marissa Peres, RNC) Outcome: Infection will be Recognized Early to Allow for Prompt Treatment (Marissa Peres, RNC) Status: Ongoing (Marissa Peres, RNC) Outcome: Patient will have Vital Signs Within Expected Range (Marissa Peres, RNC) Status: Ongoing (Marissa Peres, RNC) State: Risk For (Marissa Peres, RNC) Related To: Labor and Delivery Process (Marissa Peres, RNC) Goal(s): Patient will Remain Free from Injury (Marissa Peres, RNC) Interventions: Monitoring as per Hospital Protocol; Assess Neurological Status; Perform Risk Assessment of Patients with Induction and ; Perform Fall Risk Assessment and Prevention per Hospital Protocol; Perform DVT Risk Assessment and Prophylaxis per Hospital Protocol; Ensure that Oxygen, Suction, and Resuscitation Medications and Equipment are Readily Available; Confirm Patient ID Prior to Procedure(s) and Medication Administration per Hospital Policy (Marissa Peres, HUI) Outcome: Successful Fall Risk Prevention (Marissa Peres, RN) Status: Ongoing (Marissa Peres, RN) Outcome: Patient will Deliver Infant without Adverse [place] (Marissa Peres, RN) Status: Ongoing (Marissa Peres, RN) Outcome: Patient's Neurological Status will Remain Stable (Marissa Peres, RN) Status: Ongoing (Marissa Peres, RN) State: Risk For (Marissa Peres, SAAD) Related To: Vaginal Delivery; Invasive Procedures (Marissa Peres, RN) Goal(s): Patient will Maintain Optimal Skin Integrity, Free of Breakdown, Injury or Infection (Marissa Peres, RN) Interventions: Complete Screening for Pressure Ulcer Risk and Initiate Protocol per Hospital Policy; Monitor Site of Skin Impairment for Color Changes, Redness, Swelling, Warmth, Pain or Other Signs of Infection; Encourage and Assist with Position Changes; Monitor Patient's Mobility Status; Provide Adequate Nutrition and Fluids; Teach Patient Appropriate Hygienic Care; Teach Patient/Family Skin Care Management (Marissa Peres, RNC) Outcome: Patient will not have Evidence of Injury Such as Skin Breakdown, Scrapes, Cuts, or Bruising (Marissa Peres, RNC) Status: Ongoing (Marissa Peres, RN) Outcome: Patient will Report Any Altered Sensation or Pain at Site of Skin Impairment (Marissa Peres, RN) Status: Ongoing (Marissa Peres, RN) Outcome: Patients Incisions and Wounds will be without Signs or Symptoms of Infection (Marissa Peres, RN) Status: Ongoing (Marissa Peres, RN) Outcome: Patient will Demonstrate Understanding of Plan to Heal Skin and Prevent Reinjury and Verbalize Risk Factors (Marissa Peres, SAAD) Status: Ongoing (Marissa Peres, RN) State: Actual (Marissa Peres, SAAD) Related To: ; (Marissa Peres, RNC) Goal(s): Patient will have an Intake of Nutrients Sufficient to Meet Metabolic Needs (Marissa Peres, SAAD) Interventions: Nutritional Screening and Assessment per Hospital Policy; Consult Supervisor [employer] for Further Assessment and Recommendations Regarding Food Preferences and Nutritional Support; Allow Patient to Plan and Order Diet when Possible; Monitor Laboratory Values That Indicate Nutritional Well-being; Consult Delivery Specialist for Nutritional Support Regarding Requirements; Document Actual Weight Initially and Weekly (Do Not Estimate); Encourage Patient Participation in Maintaining a Food Log as Indicated; Educate Patient on the Importance of Maintaining an Adequate Caloric Intake (SAAD [place]) Outcome: Patient will Receive Adequate Calories and Fluid Volume to Meet Metabolic Needs (SAAD [place]) Status: Ongoing (SAAD [place]) Outcome: Patient will Select Foods or Meals that Support Adequate Nutrition (SAAD [place]) Status: Ongoing (SAAD [place])
[2016-08-16 07:58] LABS: HEMATOCRIT 34.5 % (36.0-47.0); HEMOGLOBIN 11.1 g/dL (12.0-15.5); HGB HCT DIFFERENCE -1.2; MEAN CORPUSCULAR HEMOGLOBIN 26.4 pg (27.0-33.4); MEAN CORPUSCULAR HGB CONC 32.2 g/dL (32.0-36.0); MEAN CORPUSCULAR VOLUME 82 fl (80-97); RED CELL DISTRIBUTION WIDTH 13.6 % (11.5-14.0); WHITE BLOOD COUNT 6.8 10^3/uL (4.0-10.5)
[2016-08-16] MEDS: SENNOSIDES/DOCUSATE 8.6-50 MG 1 EACH TABLET PO SCH (09:58)
[2016-08-16] MEDS: FERROUS SULFATE 325 MG TABLET PO SCH ×2 (09:58→18:00)
[2016-08-16] MEDS: PRENATAL VITAMIN W-O CA NO5/FE FUMARATE/FA CAPSULE PO SCH (09:58)
[2016-08-16] MEDS: DOCUSATE SODIUM 100 MG CAPSULE PO SCH ×2 (09:59→18:00)
--- NOTE | 2016-08-16 15:24 | PDOC PROGRESS REPORT ---
Subjective-OB Subjective: Post Delivery Day:1 35 year old s/p . Reports to be without difficulty, ambulating and voiding without difficulty. Reports Bowel movement this am. Denies any needs at this time Physical Exam (OB) Vital Signs: Temp Pulse Resp BP Pulse Ox 97.5 F 60 16 108/64 100 08/16/16 08:00 08/16/16 08:00 08/16/16 08:00 08/16/16 08:00 08/16/16 08:00 Intake & Output 08/15/16 08/16/16 08/17/16 06:59 06:59 06:59 Weight 75.55 kg - General General Appearance: Appears well In distress: None - Episiotomy/Laceration Site Condition: N/A - Lochia Lochia Amount: Scant < 10 ml Lochia Color: Rubra/Red - Abdomen Description: Soft, Flat Hernia Present: No Fundal Description: Firm, Midline Fundal Height: u/u - u/2 - Respiratory Respiratory Status: No respiratory distress - Neurological Cognition: Normal Orientation: AAOx4 - Psychological Associated symptoms: Normal affect, Normal mood - helpful at bedside. Bonding well with baby. Objective-Diagnostic Laboratory: 08/16/16 07:21 08/16/16 07:21 WBC 6.8 RBC 4.20 Hgb 11.1 L Hct 34.5 L MCV 82 MCH 26.4 L MCHC 32.2 RDW 13.6 Plt Count 252 Assessment and Plan(PN) - Assessment and Plan (1) Vaginal delivery Is this a current diagnosis for this admission?: YesPlan: continue stay - Time Spent with Patient Time with patient: Less than 15 minutes Medications reviewed and adjusted accordingly: Yes - Disposition Anticipated Discharge: Home Within: within 24 hours
[2016-08-17] MEDS: IBUPROFEN 800 MG TABLET PO SCH (05:12)
[2016-08-17 08:18] VITALS: BP 117/79
--- NOTE | 2016-08-17 09:34 | PDOC DISCHARGE SUMMARY ---
Final Diagnosis Discharge Date: 08/17/16 - Final Diagnosis (1) Vaginal delivery Is this a current diagnosis for this admission?: Yes Discharge Data - Discharge Medication Home Medications: Pnv No.122/Iron/Folic Acid [ Multi Tablet] 1 tab PO DAILY 05/08/16 Reason(s) for Admission: Onset of Labor Procedures: NST Intrapartum Procedure(s): Spontaneous Vaginal Delivery - Diagnosis Test Laboratory: Temp Pulse Resp BP Pulse Ox 97.5 F 80 18 117/79 100 08/17/16 08:17 08/17/16 08:17 08/17/16 08:17 08/17/16 08:17 08/17/16 08:17 08/15/16 08/15/16 08/16/16 09:03 10:02 07:21 RBC 3.82 4.20 Hgb 10.3 L 11.1 L Hct 31.3 L 34.5 L Urine Opiates Screen NEGATIVE - Discharge information/Instructions Discharge Activity: Activity As Tolerated, No Lifting Over 10 Pounds, Pelvic Rest, No tub bath Discharge Diet: Regular Disposition: HOME, SELF-CARE Follow up with: [facility] in: 4, Weeks
[2016-08-17] MEDS: FERROUS SULFATE 325 MG TABLET PO SCH (09:44)
[2016-08-17] MEDS: DOCUSATE SODIUM 100 MG CAPSULE PO SCH (09:44)
[2016-08-17] MEDS: SENNOSIDES/DOCUSATE 8.6-50 MG 1 EACH TABLET PO SCH (09:44)
[2016-08-17] MEDS: PRENATAL VITAMIN W-O CA NO5/FE FUMARATE/FA CAPSULE PO SCH (09:48)
== END 2016-08-17 12:31 | disposition home or self-care (01) | DRG 775 ==
LOC: LC 08:53 → LR 09:57 → 2S 16:02
PROVIDERS: ADMIT Obstetrics & Gynecology; ATTEND Obstetrics & Gynecology
PROC: 10E0XZZ Delivery of Products of Conception, External Approach (ICD-10-PCS; principal; 2016-08-15)
PROC: 4A1HXCZ Monitoring of Products of Conception, Cardiac Rate, External Approach (ICD-10-PCS; 2016-08-15)
DX: O24.420 Gestational diabetes mellitus in childbirth, diet controlled (principal); O99.844 Bariatric surgery status complicating childbirth; Z28.21 Immunization not carried out because of patient refusal; Z3A.38 38 weeks gestation of pregnancy; Z37.0 Single live birth
CPT/HCPCS: 36415; 80307; 81005; 84112; 85025; 85027; 86592; 86850; 86900; 86901; J2300; J2550; J2590

== ENCOUNTER 2016-10-31 17:58 | Emergency (ER) | payer OTHER, MEDICAID ==
[2016-10-31 18:35] VITALS: BP 136/87
[2016-10-31] MEDS ORDERED: DIPHENHYDRAMINE HCL 25 MG CAPSULE PO ONE (19:32)
[2016-10-31] MEDS ORDERED: ACETAMINOPHEN 325 MG TABLET PO ONE (19:32)
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
== END 2016-10-31 20:55 | disposition home or self-care (01) ==
LOC: ER 17:58
DX: O9A.211 Injury, poisoning and certain other consequences of external causes complicating pregnancy, first trimester (principal); S61.206A Unspecified open wound of right little finger without damage to nail, initial encounter; O20.9 Hemorrhage in early pregnancy, unspecified; V43.52XA Car driver injured in collision with other type car in traffic accident, initial encounter; Z3A.10 10 weeks gestation of pregnancy; Z98.84 Bariatric surgery status
CPT/HCPCS: 99283

== ENCOUNTER → 2018-01-17 | Outpatient (CLI) | payer MEDICAID | LOC: OD 14:55 | PROVIDERS: ATTEND Nurse Practitioner Acute Care | DX: N39.0 Urinary tract infection, site not specified (principal) | CPT/HCPCS: 87086; 87088; 87186 ==

== ENCOUNTER 2018-09-16 11:57 | Emergency (ER) | payer MEDICAID ==
[2018-09-16] MEDS ORDERED: IRON SUCROSE COMPLEX INJ/PF 100 MG/5 ML SDV IV ONE (12:48)
[2018-09-16] MEDS ORDERED: CYANOCOBALAMIN (VITAMIN B-12) INJ 1000 MCG/1 ML VIAL IM ONE (12:49)
--- NOTE | 2018-09-16 12:49 | ER Document Report ---
ED General - General Chief Complaint: Abnormal Lab Results Stated Complaint: ABNORMAL LAB Time Seen by Provider: 09/16/18 12:22 Primary Care Provider: DARCIE VARGAS NP [Primary Care Provider] - Follow up as needed TAZ HARRIS MD [ACTIVE STAFF] - Follow up tomorrow Notes: Patient is a 38-year-old female with history of iron deficiency anemia that presents to the emergency department for chief complaint of low hemoglobin as outpatient. Patient reports that she is been having some fatigue recently, but denies having any lightheadedness or passing out, she has a long history of iron deficiency anemia, and used to get iron infusions on a regular basis, but she has not had that in about a year, she is also status post gastric bypass and used to get B12 injections, which she is also not had in about a year. She denies any melena, dark stools or tarry stools. Denies any hematemesis. She states she usually has heavy menstrual periods and that is the cause of her anemia. Denies history of sickle cell. Past Medical History: Iron deficiency anemia Past Surgical History: Gastric bypass surgery Social History: Denies tobacco, alcohol or drug use. Family History: Reviewed and noncontributory for presenting illness Allergies: Reviewed, see documented allergy list. REVIEW OF SYSTEMS: Other than noted above, the 12 point review of systems was reviewed with the patient and were negative, all pertinent findings are included in the HPI. PHYSICAL EXAMINATION: Vital signs reviewed, nursing noted reviewed. GENERAL: Well-appearing, well-nourished and in no acute distress. HEAD: Atraumatic, normocephalic. EYES: Eyes appear normal, extraocular movements intact, sclera anicteric, conjunctiva are normal. ENT: nares patent, oropharynx clear without exudates. Moist mucous membranes. NECK: Normal range of motion, supple without lymphadenopathy LUNGS: Breath sounds clear to auscultation bilaterally and equal. No wheezes rales or rhonchi. HEART: Regular rate and rhythm without murmurs ABDOMEN: Soft, nontender, normoactive bowel sounds. No rebound, guarding, or rigidity. No masses appreciated. EXTREMITIES: Nontender, good range of motion, no pitting or edema. NEUROLOGICAL: No focal neurological deficits. Moves all extremities spontaneously Motor and sensory grossly intact on exam. PSYCH: Normal mood, normal affect. SKIN: Warm, Dry, normal turgor, no rashes or lesions noted on exposed skin TRAVEL OUTSIDE OF THE [place] IN LAST 30 DAYS: No - Related Data Allergies/Adverse Reactions: No Known Allergies Allergy (Verified 09/16/18 11:58) Past Medical History - Social History Smoking Status: Never Smoker Family History: Reviewed & Not Pertinent - Past Medical History Cardiac Medical History: Denies: Hx Coronary Artery Disease, Hx Heart Attack, Hx Hypertension Pulmonary Medical History: Denies: Hx Asthma, Hx Bronchitis, Hx COPD, Hx Pneumonia Neurological Medical History: Denies: Hx Cerebrovascular Accident, Hx Seizures Endocrine Medical History: Reports: Hx Diabetes Mellitus Type 2 - history of DM, non since 6 years ago after gastric bypass Renal/ Medical History: Denies: Hx Peritoneal Dialysis Musculoskeletal Medical History: Denies Hx Arthritis Past Surgical History: Reports: Hx Gastric Bypass Surgery - Immunizations Hx Diphtheria, Pertussis, Tetanus Vaccination: Yes Physical Exam - Vital signs Vitals: Temp Pulse Resp BP Pulse Ox 98.1 F 95 16 116/61 100 09/16/18 12:01 09/16/18 12:01 09/16/18 12:01 09/16/18 12:01 09/16/18 12:01 Course - Re-evaluation Re-evalutation: Patient seen and examined vital signs reviewed. Laboratory data ordered as appropriate for the patient's presenting symptoms and complaint, with consideration of any critical or life threatening conditions that may be associated with their obtained history and exam as noted above. Patient was treated with IV iron infusion, and IM B12 injection Results were reviewed when available and demonstrated hemoglobin of 7.6, and otherwise healthy patient, no indication for blood transfusion, will give iron transfusion as noted above, 300 mg of IV iron sucrose, and have her follow-up with hematology, given referral. The patient was re-evaluated and was stable Evaluation was most consistent with iron deficiency anemia, microcytic. Results were discussed with the patient at this point, after careful consideration I feel that that patient can be discharged from the emergency department, the patient was educated treatments and reasons to return to the emergency department based on their presumed diagnosis as noted above, they were advised to followup with a primary care physician in 2-3 days. Patient was agreeable to plan of care. *Note is created using voice recognition software and may contain spelling, syntax or grammatical errors. Laboratory 09/16/18 13:06 WBC 4.3 RBC 4.26 Hgb 7.6 L Hct 25.0 L MCV 59 L MCH 17.7 L MCHC 30.3 L RDW 19.2 H Plt Count 254 Seg Neutrophils % 65.4 Lymphocytes % 24.1 Monocytes % 9.1 Eosinophils % 0.6 Basophils % 0.8 Absolute Neutrophils 2.8 Absolute Lymphocytes 1.0 Absolute Monocytes 0.4 Absolute Eosinophils 0.0 Absolute Basophils 0.0 Platelet Comment ADEQUATE Polychromasia SLIGHT Hypochromasia 3+ Poikilocytosis 1+ Anisocytosis 2+ Microcytosis 4+ Ovalocytes 1+ - Vital Signs Vital signs: Temp Pulse Resp BP Pulse Ox 98.1 F 95 16 116/61 100 09/16/18 12:01 09/16/18 12:01 09/16/18 12:01 09/16/18 12:01 09/16/18 12:01 - Laboratory Result Diagrams: 09/16/18 13:06 Laboratory results interpreted by me: 09/16/18 13:06 Hgb 7.6 L Hct 25.0 L MCV 59 L MCH 17.7 L MCHC 30.3 L RDW 19.2 H Discharge - Discharge Clinical Impression: Anemia Condition: Stable Disposition: HOME, SELF-CARE Instructions: Anemia, Iron Deficiency ([facility]) Additional Instructions: Please follow-up with hematology, call for an appointment to get set up with the infusion center if you need recurrent iron infusions as well as B12 injections. Referrals: DARCIE VARGAS NP [Primary Care Provider] - Follow up as needed TAZ HARRIS MD [ACTIVE STAFF] - Follow up tomorrow
[2018-09-16 14:12] LABS: ABSOLUTE MONOCYTES (AUTO) 0.4 10^3/uL (0.1-1.4); ABSOLUTE NEUT (AUTO) 2.8 10^3/uL (1.7-8.2); BASOPHILS % (AUTO) 0.8 % (0-2); EOSINOPHILS % (AUTO) 0.6 % (0-6); LYMPHOCYTES % (AUTO) 24.1 % (13-45); MEAN CORPUSCULAR HEMOGLOBIN 17.7 pg (27.0-33.4); MEAN CORPUSCULAR HGB CONC 30.3 g/dL (32.0-36.0); MONOCYTES % (AUTO) 9.1 % (3-13); PLATELET COUNT 254 10^3/uL (150-450); RED BLOOD COUNT 4.26 10^6/uL (3.72-5.28); RED CELL DISTRIBUTION WIDTH 19.2 % (11.5-14.0); SEGMENTED NEUTROPHILS % (AUTO) 65.4 % (42-78); TOTAL CELLS COUNTED % (AUTO) 100 %; WHITE BLOOD COUNT 4.3 10^3/uL (4.0-10.5)
[2018-09-16 14:22] LABS: MEAN CORPUSCULAR VOLUME 59 fl (80-97)
[2018-09-16 14:23] LABS: HEMOGLOBIN 7.6 g/dL (12.0-15.5)
[2018-09-16 14:33] LABS: ANISOCYTOSIS 2+; HYPOCHROMASIA 3+; OVALOCYTES 1+; POIKILOCYTOSIS 1+; POLYCHROMASIA SLIGHT
[2018-09-16 14:34] LABS: PLATELET COMMENT ADEQUATE
[2018-09-16 16:20] VITALS: BP 120/60
[2018-09-17 12:06] LABS: PATH REVIEW PATHOLOGIST REVIEWED
== END 2018-09-16 16:20 | disposition home or self-care (01) ==
LOC: ER 11:57
DX: D64.9 Anemia, unspecified (principal); R53.83 Other fatigue; Z98.84 Bariatric surgery status
CPT/HCPCS: 99284; 96372; 96365; 36415; 85025; J1756; J3420